=== PATIENT | male | born 1945 | race Caucasian/White ===

== ENCOUNTER 2018-01-17 15:09 | Emergency (ER) | payer MEDICARE ==
[~2018-01-17] VITALS: Ht 190.5 cm; Wt 123.8 kg
[~2018-01-17 15:09] MED LIST: ACET325 PO; ALBU90OI6 INH; AMOCLA875 PO; ASCO250CH PO; ASCO500 PO; ASPI325 PO; ATECHL PO; ATOR40TA PO; ATORVASTATIN CA40 MG PO; Amaryl2 MG PO; Aspir 8181 MG PO; Augmentin 875-1 EACH PO; BISA10S PR; Bactrim Ds Tab1 EACH PO; CARV3.125 PO; CLOP75 PO; DOC250 PO; DOCU100 PO; ESCI10 PO; FLUSAL2505; FLUSAL2505 INH; FURO20 PO; FURO40 PO; Ferrous Sulfat325 M2 PO; GABA100 PO; GABA300 PO; GLIM2 PO; HYDCHL25 PO; HYDR1TAB94 PO; HYDRA25 PO; Hydrocodone-Ap1 EA20 PO; INSDET100; INSDETPEN SC; IRON325 MG PO; LEVE500 PO; LEVFLO500 PO; LEVOFLOXACIN500 MG PO; LISI20 PO; LISI5 PO; LORA1 PO; LOVA20 PO; Lisinopril2.5 MG; Lisinopril2.5 MG PO; Loperamide2 MG PO; METF500 PO; METO50 PO; MINO100 PO; MIRALAX17 GM PO; MORP15ER PO; MORP30 PO; Micro-K10 MEQ PO; Milk Of Ma400 MG/5 M PO; Nitroglycerin0.4 MG SL; ONE A DAY PREN1 EACH PO; OXYC10ER; OXYC10ER PO; OXYC10TA19 PO; Omeprazole20 M1 PO; POTCHL10ER PO; PRED10 PO; PROM25 PO; Percocet 10-321 EACH PO; ROXICODONE5 MG PO; THERA PO; TIOT18; TIOT18 INH; UNKOWN B/P MED; WARF5 PO; Zofran Odt8 MG SL
[2018-01-17 15:55] LABS: BASOPHILS ABSOLUTE AUTO 0.03 K/mm3 (0.00-0.23); BASOPHILS PERCENT AUTO 0 % (0-2); EOSINOPHILS ABSOLUTE AUTO 0.01 K/mm3 (0.00-0.68); EOSINOPHILS PERCENT AUTO 0 % (0-6); Hematocrit 40.4 % (37.0-53.0); Hemoglobin 13.3 g/dL (13.5-17.5); IMMATURE GRAN ABSOLUTE AUTO 0.04 K/mm3 (0.00-0.10); IMMATURE GRAN PERCENT AUTO 0 % (0-1); LYMPHOCYTES ABSOLUTE AUTO 1.01 K/mm3 (0.84-5.20); LYMPHOCYTES PERCENT AUTO 8 % (21-46); MONOCYTES ABSOLUTE AUTO 0.71 K/mm3 (0.16-1.47); MONOCYTES PERCENT AUTO 6 % (4-13); Mean Corpuscular HGB 29.9 pg (26.0-34.0); Mean Corpuscular HGB Conc 32.9 g/dL (31.5-36.5); Mean Corpuscular Volume 91 fL (80-100); NEUTROPHILS ABSOLUTE AUTO 10.18 K/mm3 (1.96-9.15); NEUTROPHILS PERCENT AUTO 85 % (41-73); RDW Coefficient Variation 16.4 % (11.7-14.2); RDW Standard Deviation 55.2 fL (35.1-46.3); Red Blood Cell Count 4.45 M/mm3 (4.30-5.90); White Blood Cell Count 11.98 K/mm3 (4.00-11.30)
[2018-01-17 15:58] LABS: Mean Platelet Volume 10.3 fL (9.1-12.4); Platelet Count 187 K/mm3 (150-400)
[2018-01-17 16:10] LABS: Alanine Aminotransfer (ALT/SGP 20 U/L (12-78); Albumin/Globulin Ratio 0.9 (0.8-1.8); Alk Phos 122 U/L (50-136); Anion Gap 9 mmol/L (6-16); Aspartate Aminotrans (AST/SGOT 21 U/L (12-37); Bilirubin, Total 0.7 mg/dL (0.1-1.0); Blood Urea Nitrogen 15 mg/dL (8-24); Bun/Creatinine Ratio 16.4 (12.0-20.0); CO2, Blood 26 mmol/L (21-32); Calcium, Blood 9.8 mg/dL (8.5-10.1); Chloride, Blood 103 mmol/L (98-108); Creatinine, Blood 0.92 mg/dL (0.60-1.20); Globulin, Blood 4.6 g/dL (2.2-4.0); Glomerular Filtration Rate >60 (60-); Glucose, Blood 169 mg/dL (70-99); Potassium, Blood 4.2 mmol/L (3.5-5.5); Sodium, Blood 138 mmol/L (136-145); Total Protein, Blood 8.6 g/dL (6.4-8.2)
[2018-01-17 17:28] LABS: Source, Urine Clean Catch
[2018-01-17 17:35] LABS: Bilirubin, Urine Neg (Neg); Blood, Urine 4+ (Neg); Glucose Qualitative, Urine 2+ (Neg); Ketones, Urine 2+ (Neg); Leukocyte Esterase, Urine 1+ (Neg); Nitrite, Urine Neg (Neg); Protein, Urine 3+ (Neg); Urobilinogen, Urine NORM (Normal)
[2018-01-17 17:49] LABS: Appearance, Urine Clear (Clear); Color, Urine Yellow (P-Yellow)
[2018-01-17 17:50] LABS: Bacteria Few /hpf; Red Blood Cells, Urine 25-50 /hpf (0-2); Squamous Epithelial Cells Few /hpf (Few); White Blood Cells, Urine 0-2 /hpf (0-5)
[2018-01-17] MEDS ORDERED: Zofran Odt4 MG PO (18:22)
== END 2018-01-17 18:50 | disposition home or self-care (01) ==
LOC: ER 15:09
PROVIDERS: Emergency Medicine; Internal Medicine
DX: I10 Essential (primary) hypertension (principal); R11.0 Nausea; R10.13 Epigastric pain; E11.9 Type 2 diabetes mellitus without complications; Z79.899 Other long term (current) drug therapy; Z79.84 Long term (current) use of oral hypoglycemic drugs; Z87.891 Personal history of nicotine dependence
CPT/HCPCS: 36415; 74018; 80053; 81001; 83690; 85025; 87077; 87086; 87186; 93005; 93010; 96361; 96374; 96375; 96376; 99283-25; J0360; J1885; J2405; J2550; J7030

== ENCOUNTER 2019-06-21 11:38 | Emergency (ER) | payer MEDICARE ==
[~2019-06-21] VITALS: Ht 190.5 cm; Wt 149.7 kg
[~2019-06-21 11:38] MED LIST changes: +Coreg6.25 MG PO; +XARELTO20 MG PO; +Zofran Odt4 MG PO
[2019-06-21 12:39] LABS: BASOPHILS ABSOLUTE AUTO 0.05 K/mm3 (0.00-0.23); BASOPHILS PERCENT AUTO 1 % (0-2); EOSINOPHILS PERCENT AUTO 1 % (0-6); Hematocrit 38.3 % (37.0-53.0); Hemoglobin 12.3 g/dL (13.5-17.5); IMMATURE GRAN ABSOLUTE AUTO 0.02 K/mm3 (0.00-0.10); IMMATURE GRAN PERCENT AUTO 0 % (0-1); LYMPHOCYTES PERCENT AUTO 23 % (21-46); MONOCYTES ABSOLUTE AUTO 0.86 K/mm3 (0.16-1.47); MONOCYTES PERCENT AUTO 11 % (4-13); Mean Corpuscular HGB 29.7 pg (26.0-34.0); Mean Corpuscular HGB Conc 32.1 g/dL (31.5-36.5); Mean Corpuscular Volume 93 fL (80-100); NEUTROPHILS ABSOLUTE AUTO 4.94 K/mm3 (1.96-9.15); NEUTROPHILS PERCENT AUTO 64 % (41-73); Platelet Count 224 K/mm3 (150-400); RDW Coefficient Variation 14.6 % (11.7-14.2); RDW Standard Deviation 49.6 fL (35.1-46.3); Red Blood Cell Count 4.14 M/mm3 (4.30-5.90); White Blood Cell Count 7.77 K/mm3 (4.00-11.30)
[2019-06-21 13:38] LABS: Alanine Aminotransfer (ALT/SGP 18 U/L (12-78); Albumin, Blood 3.6 g/dL (3.4-5.0); Albumin/Globulin Ratio 0.8 (0.8-1.8); Alk Phos 94 U/L (50-136); Anion Gap 8 mmol/L (6-16); Aspartate Aminotrans (AST/SGOT 14 U/L (12-37); Bilirubin, Total 0.8 mg/dL (0.1-1.0); Blood Urea Nitrogen 11 mg/dL (8-24); Bun/Creatinine Ratio 11.8 (12.0-20.0); CO2, Blood 25 mmol/L (21-32); Calcium, Blood 9.3 mg/dL (8.5-10.1); Chloride, Blood 107 mmol/L (98-108); Creatinine, Blood 0.94 mg/dL (0.60-1.20); Globulin, Blood 4.6 g/dL (2.2-4.0); Glomerular Filtration Rate >60 (60-); Glucose, Blood 130 mg/dL (70-99); Potassium, Blood 3.9 mmol/L (3.5-5.5); Sodium, Blood 140 mmol/L (136-145); Total Protein, Blood 8.2 g/dL (6.4-8.2)
[2019-06-21] MEDS ORDERED: Zofran4 MG PO (14:16)
== END 2019-06-21 14:47 | disposition home or self-care (01) ==
LOC: ER 11:38
PROVIDERS: Emergency Medicine
DX: R11.0 Nausea (principal); R10.9 Unspecified abdominal pain; E11.9 Type 2 diabetes mellitus without complications; Z79.899 Other long term (current) drug therapy; Z87.891 Personal history of nicotine dependence
CPT/HCPCS: 36415; 80053; 83690; 85025; 93005; 93010; 96374; 99284-25; J2405

== ENCOUNTER 2019-11-20 00:08 | Day surgery (SDC) | payer MEDICARE ==
[~2019-11-20 00:08] MED LIST changes: +Zofran4 MG PO
== END 2019-11-20 22:38 | disposition home or self-care (01) ==
LOC: WOUND 00:08
DX: E11.622 Type 2 diabetes mellitus with other skin ulcer (principal); L97.222 Non-pressure chronic ulcer of left calf with fat layer exposed; I70.25 Atherosclerosis of native arteries of other extremities with ulceration; Z87.891 Personal history of nicotine dependence; Z79.01 Long term (current) use of anticoagulants; Z79.899 Other long term (current) drug therapy; Z79.84 Long term (current) use of oral hypoglycemic drugs
CPT/HCPCS: G0463

== ENCOUNTER 2019-11-29 00:16 | Day surgery (SDC) | payer MEDICARE | END 2019-11-29 23:52 | disposition home or self-care (01) | LOC: WOUND 00:16 | DX: E11.622 Type 2 diabetes mellitus with other skin ulcer (principal); L97.222 Non-pressure chronic ulcer of left calf with fat layer exposed; I70.25 Atherosclerosis of native arteries of other extremities with ulceration; Z79.84 Long term (current) use of oral hypoglycemic drugs | CPT/HCPCS: 11107 ==

== ENCOUNTER 2020-01-07 20:15 | Emergency (ER) | payer MEDICARE ==
[~2020-01-07] VITALS: Ht 190.5 cm; Wt 90.7 kg
[2020-01-07 21:01] LABS: BASOPHILS ABSOLUTE AUTO 0.04 K/mm3 (0.00-0.23); BASOPHILS PERCENT AUTO 0 % (0-2); EOSINOPHILS ABSOLUTE AUTO 0.31 K/mm3 (0.00-0.68); EOSINOPHILS PERCENT AUTO 3 % (0-6); Hematocrit 29.6 % (37.0-53.0); IMMATURE GRAN ABSOLUTE AUTO 0.04 K/mm3 (0.00-0.10); IMMATURE GRAN PERCENT AUTO 0 % (0-1); LYMPHOCYTES ABSOLUTE AUTO 2.39 K/mm3 (0.84-5.20); LYMPHOCYTES PERCENT AUTO 25 % (21-46); MONOCYTES ABSOLUTE AUTO 0.99 K/mm3 (0.16-1.47); MONOCYTES PERCENT AUTO 10 % (4-13); Mean Corpuscular HGB 26.8 pg (26.0-34.0); Mean Corpuscular HGB Conc 30.4 g/dL (31.5-36.5); Mean Corpuscular Volume 88 fL (80-100); Mean Platelet Volume 11.4 fL (9.1-12.4); NEUTROPHILS ABSOLUTE AUTO 5.77 K/mm3 (1.96-9.15); NEUTROPHILS PERCENT AUTO 61 % (41-73); Platelet Count 234 K/mm3 (150-400); RDW Standard Deviation 54.5 fL (35.1-46.3); Red Blood Cell Count 3.36 M/mm3 (4.30-5.90); White Blood Cell Count 9.54 K/mm3 (4.00-11.30)
[2020-01-07 21:19] LABS: Alanine Aminotransfer (ALT/SGP 19 U/L (12-78); Albumin, Blood 3.5 g/dL (3.4-5.0); Albumin/Globulin Ratio 0.7 (0.8-1.8); Alk Phos 97 U/L (50-136); Anion Gap 5 mmol/L (6-16); Aspartate Aminotrans (AST/SGOT 31 U/L (12-37); Bilirubin, Total 0.4 mg/dL (0.1-1.0); Blood Urea Nitrogen 22 mg/dL (8-24); Bun/Creatinine Ratio 20.2 (12.0-20.0); CO2, Blood 28 mmol/L (21-32); Calcium, Blood 8.9 mg/dL (8.5-10.1); Chloride, Blood 108 mmol/L (98-108); Creatinine, Blood 1.09 mg/dL (0.60-1.20); Globulin, Blood 4.8 g/dL (2.2-4.0); Glomerular Filtration Rate >60 (60-); Glucose, Blood 109 mg/dL (70-99); Potassium, Blood 5.1 mmol/L (3.5-5.5); Sodium, Blood 141 mmol/L (136-145); Total Protein, Blood 8.3 g/dL (6.4-8.2)
[2020-01-07 21:27] LABS: Source, Urine Clean Catch
[2020-01-07 21:31] LABS: Bilirubin, Urine Neg (Neg); Blood, Urine 4+ (Neg); Glucose Qualitative, Urine Neg (Neg); Ketones, Urine Neg (Neg); Leukocyte Esterase, Urine Neg (Neg); Nitrite, Urine Neg (Neg); Protein, Urine 2+ (Neg); Urobilinogen, Urine NORM (Normal)
[2020-01-07 21:39] LABS: Appearance, Urine Clear (Clear); Color, Urine Yellow (P-Yellow)
[2020-01-07 21:40] LABS: Bacteria Few /hpf; Squamous Epithelial Cells Few /hpf (Few); White Blood Cells, Urine 0-2 /hpf (0-5)
== END 2020-01-08 00:19 | disposition home or self-care (01) ==
LOC: ER 20:15
PROVIDERS: Physician Assistant
DX: R53.1 Weakness (principal); E11.9 Type 2 diabetes mellitus without complications; Z79.899 Other long term (current) drug therapy
CPT/HCPCS: 36415; 71045; 80053; 81001; 85025; 93005; 93010; 99284-25

== ENCOUNTER → 2020-02-06 | Outpatient (CLI) | payer MEDICARE ==
[2020-02-06 16:33] LABS: Appearance, Urine Clear (Clear); Bilirubin, Urine Neg (Neg); Blood, Urine 1+ (Neg); Color, Urine Yellow (P-Yellow); Glucose Qualitative, Urine Neg (Neg); Ketones, Urine Neg (Neg); Leukocyte Esterase, Urine Neg (Neg); Nitrite, Urine Neg (Neg); Protein, Urine Neg (Neg); Urobilinogen, Urine NORM (Normal)
[2020-02-06 16:44] LABS: Bacteria Rare /hpf; Hyaline Casts Rare /lpf (0-2); Squamous Epithelial Cells Few /hpf (Few); White Blood Cells, Urine 0-2 /hpf (0-5)
== END | disposition home or self-care (01) ==
LOC: LAB SHORT 15:30 → LAB 15:30
PROVIDERS: Physician Assistant
DX: R31.9 Hematuria, unspecified (principal)
CPT/HCPCS: 81001; 87086

== ENCOUNTER 2020-03-28 15:23 | Emergency (ER) | payer MEDICARE ==
[~2020-03-28] VITALS: Ht 190.5 cm; Wt 90.7 kg
[~2020-03-28 15:23] MED LIST changes: -Micro-K10 MEQ PO; +POTA10T PO
[2020-03-28 16:09] LABS: BASOPHILS ABSOLUTE AUTO 0.05 K/mm3 (0.00-0.23); BASOPHILS PERCENT AUTO 1 % (0-2); EOSINOPHILS ABSOLUTE AUTO 0.26 K/mm3 (0.00-0.68); EOSINOPHILS PERCENT AUTO 4 % (0-6); Hematocrit 26.3 % (37.0-53.0); Hemoglobin 7.6 g/dL (13.5-17.5); IMMATURE GRAN ABSOLUTE AUTO 0.04 K/mm3 (0.00-0.10); IMMATURE GRAN PERCENT AUTO 1 % (0-1); LYMPHOCYTES ABSOLUTE AUTO 1.56 K/mm3 (0.84-5.20); LYMPHOCYTES PERCENT AUTO 23 % (21-46); MONOCYTES ABSOLUTE AUTO 0.77 K/mm3 (0.16-1.47); MONOCYTES PERCENT AUTO 11 % (4-13); Mean Corpuscular HGB 23.9 pg (26.0-34.0); Mean Corpuscular HGB Conc 28.9 g/dL (31.5-36.5); Mean Corpuscular Volume 83 fL (80-100); NEUTROPHILS ABSOLUTE AUTO 4.08 K/mm3 (1.96-9.15); NEUTROPHILS PERCENT AUTO 60 % (41-73); RDW Coefficient Variation 21.3 % (11.7-14.2); RDW Standard Deviation 63.5 fL (35.1-46.3); Red Blood Cell Count 3.18 M/mm3 (4.30-5.90); White Blood Cell Count 6.76 K/mm3 (4.00-11.30)
[2020-03-28 16:24] LABS: Mean Platelet Volume 12.3 fL (9.1-12.4); Platelet Count 133 K/mm3 (150-400)
[2020-03-28 16:45] LABS: Albumin/Globulin Ratio 0.7 (0.8-1.8); Bilirubin, Total 0.7 mg/dL (0.1-1.0); Bun/Creatinine Ratio 18.2 (12.0-20.0); Calcium, Blood 8.1 mg/dL (8.5-10.1); Creatinine, Blood 1.65 mg/dL (0.60-1.20); Globulin, Blood 4.4 g/dL (2.2-4.0); Potassium, Blood 4.5 mmol/L (3.5-5.5); Total Protein, Blood 7.4 g/dL (6.4-8.2)
[2020-03-28] MEDS ORDERED: FURO40 PO (16:46)
[2020-03-28 16:57] LABS: Lactate Dehydrogenase (Ld),Bld 259 U/L (100-240); Troponin I <0.015 ng/mL (0.000-0.040)
== END 2020-03-28 18:00 | disposition home or self-care (01) ==
LOC: ER 15:23
PROVIDERS: Emergency Medicine; Physician Assistant
DX: I95.9 Hypotension, unspecified (principal); I13.0 Hypertensive heart and chronic kidney disease with heart failure and stage 1 through stage 4 chronic kidney disease, or unspecified chronic kidney disease; I50.9 Heart failure, unspecified; N18.9 Chronic kidney disease, unspecified; I25.2 Old myocardial infarction; I25.10 Atherosclerotic heart disease of native coronary artery without angina pectoris; I48.91 Unspecified atrial fibrillation; E11.51 Type 2 diabetes mellitus with diabetic peripheral angiopathy without gangrene; E11.22 Type 2 diabetes mellitus with diabetic chronic kidney disease; E78.5 Hyperlipidemia, unspecified; I25.810 Atherosclerosis of coronary artery bypass graft(s) without angina pectoris; Z95.1 Presence of aortocoronary bypass graft; Z79.899 Other long term (current) drug therapy
CPT/HCPCS: 36415; 80053; 82248; 83615; 83880; 84484; 85025; 86850; 86900; 86901; 93005; 93010; 99284-25; J7030

== ENCOUNTER → 2020-04-04 | Outpatient (CLI) | payer MEDICARE ==
[2020-04-04 17:50] LABS: Percent Saturation 6.3 % (20.0-50.0)
[2020-04-04 17:55] LABS: BASOPHILS ABSOLUTE AUTO 0.05 K/mm3 (0.00-0.23); BASOPHILS PERCENT AUTO 1 % (0-2); EOSINOPHILS ABSOLUTE AUTO 0.25 K/mm3 (0.00-0.68); EOSINOPHILS PERCENT AUTO 4 % (0-6); Hematocrit 24.7 % (37.0-53.0); Hemoglobin 7.1 g/dL (13.5-17.5); IMMATURE GRAN ABSOLUTE AUTO 0.03 K/mm3 (0.00-0.10); IMMATURE GRAN PERCENT AUTO 0 % (0-1); LYMPHOCYTES PERCENT AUTO 23 % (21-46); MONOCYTES ABSOLUTE AUTO 0.84 K/mm3 (0.16-1.47); MONOCYTES PERCENT AUTO 12 % (4-13); Mean Corpuscular HGB 23.9 pg (26.0-34.0); Mean Corpuscular HGB Conc 28.7 g/dL (31.5-36.5); Mean Corpuscular Volume 83 fL (80-100); NEUTROPHILS ABSOLUTE AUTO 4.23 K/mm3 (1.96-9.15); NEUTROPHILS PERCENT AUTO 60 % (41-73); RDW Coefficient Variation 22.2 % (11.7-14.2); RDW Standard Deviation 65.8 fL (35.1-46.3); Red Blood Cell Count 2.97 M/mm3 (4.30-5.90)
[2020-04-04 17:59] LABS: Alanine Aminotransfer (ALT/SGP 22 U/L (12-78); Albumin, Blood 3.1 g/dL (3.4-5.0); Albumin/Globulin Ratio 0.7 (0.8-1.8); Alk Phos 92 U/L (50-136); Anion Gap 6 mmol/L (6-16); Aspartate Aminotrans (AST/SGOT 20 U/L (12-37); Bilirubin, Total 0.4 mg/dL (0.1-1.0); Blood Urea Nitrogen 22 mg/dL (8-24); Bun/Creatinine Ratio 17.7 (12.0-20.0); CO2, Blood 27 mmol/L (21-32); Calcium, Blood 8.5 mg/dL (8.5-10.1); Chloride, Blood 107 mmol/L (98-108); Creatinine, Blood 1.24 mg/dL (0.60-1.20); Globulin, Blood 4.3 g/dL (2.2-4.0); Glomerular Filtration Rate >60 (60-); Glucose, Blood 163 mg/dL (70-99); Potassium, Blood 4.9 mmol/L (3.5-5.5); Sodium, Blood 140 mmol/L (136-145); Total Protein, Blood 7.4 g/dL (6.4-8.2)
[2020-04-04 18:16] LABS: Mean Platelet Volume 12.9 fL (9.1-12.4); Platelet Count 212 K/mm3 (150-400)
== END | disposition home or self-care (01) ==
LOC: LAB HH 15:48
PROVIDERS: Physician Assistant
DX: C44.729 Squamous cell carcinoma of skin of left lower limb, including hip (principal); D63.0 Anemia in neoplastic disease; N28.9 Disorder of kidney and ureter, unspecified; D69.6 Thrombocytopenia, unspecified
CPT/HCPCS: 80053; 82607; 82728; 82746; 83540; 83550; 83880; 85025

== ENCOUNTER 2020-04-07 13:39 | Emergency (ER) | payer MEDICARE ==
[~2020-04-07] VITALS: Ht 190.5 cm; Wt 88.5 kg
[2020-04-07 14:51] LABS: BASOPHILS ABSOLUTE AUTO 0.05 K/mm3 (0.00-0.23); BASOPHILS PERCENT AUTO 1 % (0-2); EOSINOPHILS ABSOLUTE AUTO 0.23 K/mm3 (0.00-0.68); EOSINOPHILS PERCENT AUTO 4 % (0-6); Hematocrit 24.1 % (37.0-53.0); Hemoglobin 6.8 g/dL (13.5-17.5); IMMATURE GRAN ABSOLUTE AUTO 0.01 K/mm3 (0.00-0.10); IMMATURE GRAN PERCENT AUTO 0 % (0-1); LYMPHOCYTES ABSOLUTE AUTO 1.66 K/mm3 (0.84-5.20); LYMPHOCYTES PERCENT AUTO 28 % (21-46); MONOCYTES ABSOLUTE AUTO 0.71 K/mm3 (0.16-1.47); MONOCYTES PERCENT AUTO 12 % (4-13); Mean Corpuscular HGB 23.6 pg (26.0-34.0); Mean Corpuscular HGB Conc 28.2 g/dL (31.5-36.5); Mean Corpuscular Volume 84 fL (80-100); Mean Platelet Volume 11.4 fL (9.1-12.4); NEUTROPHILS ABSOLUTE AUTO 3.33 K/mm3 (1.96-9.15); NEUTROPHILS PERCENT AUTO 56 % (41-73); Platelet Count 225 K/mm3 (150-400); RDW Coefficient Variation 22.4 % (11.7-14.2); RDW Standard Deviation 67.9 fL (35.1-46.3); Red Blood Cell Count 2.88 M/mm3 (4.30-5.90); White Blood Cell Count 5.99 K/mm3 (4.00-11.30)
[2020-04-07 15:11] LABS: Alanine Aminotransfer (ALT/SGP 14 U/L (12-78); Albumin, Blood 3.1 g/dL (3.4-5.0); Albumin/Globulin Ratio 0.7 (0.8-1.8); Alk Phos 94 U/L (50-136); Anion Gap 4 mmol/L (6-16); Aspartate Aminotrans (AST/SGOT 9 U/L (12-37); Bilirubin, Total 0.5 mg/dL (0.1-1.0); Blood Urea Nitrogen 22 mg/dL (8-24); Bun/Creatinine Ratio 15.3 (12.0-20.0); CO2, Blood 28 mmol/L (21-32); Calcium, Blood 8.7 mg/dL (8.5-10.1); Chloride, Blood 106 mmol/L (98-108); Creatinine, Blood 1.44 mg/dL (0.60-1.20); Globulin, Blood 4.2 g/dL (2.2-4.0); Glomerular Filtration Rate 51 (60-); Glucose, Blood 137 mg/dL (70-99); Potassium, Blood 4.7 mmol/L (3.5-5.5); Sodium, Blood 138 mmol/L (136-145); Total Protein, Blood 7.3 g/dL (6.4-8.2); Troponin I <0.015 ng/mL (0.000-0.040)
== END 2020-04-07 19:34 | disposition home or self-care (01) ==
LOC: ER 13:39
PROVIDERS: Physician Assistant
DX: D64.9 Anemia, unspecified (principal); R79.89 Other specified abnormal findings of blood chemistry; I25.2 Old myocardial infarction; I48.91 Unspecified atrial fibrillation; E11.51 Type 2 diabetes mellitus with diabetic peripheral angiopathy without gangrene; I13.0 Hypertensive heart and chronic kidney disease with heart failure and stage 1 through stage 4 chronic kidney disease, or unspecified chronic kidney disease; I50.9 Heart failure, unspecified; E78.5 Hyperlipidemia, unspecified; I25.810 Atherosclerosis of coronary artery bypass graft(s) without angina pectoris; E11.22 Type 2 diabetes mellitus with diabetic chronic kidney disease; N18.9 Chronic kidney disease, unspecified; Z79.899 Other long term (current) drug therapy; Z95.1 Presence of aortocoronary bypass graft; Z87.891 Personal history of nicotine dependence
CPT/HCPCS: 36415; 71046; 80053; 83880; 84484; 85025; 86850; 86900; 86901; 86923; 93005; 93010; 96365; 99285-25; J7030; P9016

== ENCOUNTER 2020-07-20 16:57 | Inpatient (IN) | payer MEDICARE ==
[~2020-07-20] VITALS: Ht 190.5 cm; Wt 81.3 kg
[~2020-07-20 16:57] MED LIST changes: +CARV6.25 PO; +FERSU300 PO; +OMEP20ER PO
[2020-07-20 18:15] LABS: BASOPHILS ABSOLUTE AUTO 0.07 K/mm3 (0.00-0.23); BASOPHILS PERCENT AUTO 1 % (0-2); EOSINOPHILS ABSOLUTE AUTO 0.14 K/mm3 (0.00-0.68); EOSINOPHILS PERCENT AUTO 2 % (0-6); Hematocrit 39.7 % (37.0-53.0); Hemoglobin 12.6 g/dL (13.5-17.5); IMMATURE GRAN ABSOLUTE AUTO 0.07 K/mm3 (0.00-0.10); IMMATURE GRAN PERCENT AUTO 1 % (0-1); LYMPHOCYTES ABSOLUTE AUTO 1.95 K/mm3 (0.84-5.20); LYMPHOCYTES PERCENT AUTO 21 % (21-46); MONOCYTES ABSOLUTE AUTO 0.93 K/mm3 (0.16-1.47); MONOCYTES PERCENT AUTO 10 % (4-13); Mean Corpuscular HGB 28.8 pg (26.0-34.0); Mean Corpuscular HGB Conc 31.7 g/dL (31.5-36.5); Mean Corpuscular Volume 91 fL (80-100); Mean Platelet Volume 10.9 fL (9.1-12.4); NEUTROPHILS ABSOLUTE AUTO 6.15 K/mm3 (1.96-9.15); NEUTROPHILS PERCENT AUTO 66 % (41-73); Platelet Count 153 K/mm3 (150-400); RDW Coefficient Variation 18.6 % (11.7-14.2); RDW Standard Deviation 59.7 fL (35.1-46.3); Red Blood Cell Count 4.37 M/mm3 (4.30-5.90); White Blood Cell Count 9.31 K/mm3 (4.00-11.30)
[2020-07-20 18:27] LABS: Troponin I 0.016 ng/mL (0.000-0.040)
[2020-07-20 18:28] LABS: Albumin, Blood 3.6 g/dL (3.4-5.0); Albumin/Globulin Ratio 0.8 (0.8-1.8); Bilirubin, Total 0.6 mg/dL (0.1-1.0); Bun/Creatinine Ratio 11.9 (12.0-20.0); Calcium, Blood 9.2 mg/dL (8.5-10.1); Creatinine, Blood 2.1 mg/dL (0.60-1.20); Globulin, Blood 4.4 g/dL (2.2-4.0); Potassium, Blood 3.9 mmol/L (3.5-5.5)
[2020-07-20 18:29] LABS: Ethanol (Alcohol), Blood, Med <3 mg/dL; Salicylate 2.4 mg/dL (2.8-20.0)
[2020-07-20 18:30] LABS: Acetaminophen, Random <2.0 ug/mL (10.0-30.0)
[2020-07-20 18:36] LABS: Influenza A, PCR Negative (NEGATIVE); Influenza B, PCR Negative (NEGATIVE); Resp Syncytial Virus, PCR Negative (NEGATIVE); SARS-Cov-2 (COVID-19) PCR, MMC Negative (NEGATIVE)
[2020-07-20 18:52] LABS: Source, Urine Catheter
[2020-07-20 18:56] LABS: Appearance, Urine Hazy (Clear); Bilirubin, Urine 2+ (Neg); Blood, Urine 5+ (Neg); Glucose Qualitative, Urine Neg (Neg); Ketones, Urine 2+ (Neg); Leukocyte Esterase, Urine 1+ (Neg); Nitrite, Urine Pos (Neg); Protein, Urine 3+ (Neg); Specific Gravity, Urine 1.025 (1.003-1.022); Urobilinogen, Urine 2+ (Normal)
[2020-07-20] MEDS ORDERED: ESCI10 PO (18:56)
[2020-07-20] MEDS ORDERED: GABAPENTIN600 MG PO (18:56)
[2020-07-20] MEDS ORDERED: FUROSEMIDE40 MG PO (18:56)
[2020-07-20] MEDS ORDERED: CARVEDILOL12.5 MG PO (18:56)
[2020-07-20] MEDS ORDERED: ATORVASTATIN CA40 M1 PO (18:56)
[2020-07-20 18:57] LABS: Color, Urine Amber (P-Yellow)
[2020-07-20] MEDS ORDERED: OMEP20ER PO (18:57)
[2020-07-20] MEDS ORDERED: Lisinopril2.5 MG PO (18:57)
[2020-07-20] MEDS ORDERED: GLIM2 PO (18:58)
[2020-07-20 19:03] LABS: Bacteria Mod /hpf; Squamous Epithelial Cells Few /hpf (Few)
[2020-07-20 19:04] LABS: Amorphous Mod (0-Heavy)
[2020-07-20 19:06] LABS: U Amphetamine Screen Not Detected; U Barbituate Screen Not Detected; U Benzodiazapine Screen Not Detected; U Buprenorphine Screen Not Detected; U Cannabinoids Screen DETECTED; U Cocaine Screen Not Detected; U Methadone Screen Not Detected; U Methamphetamine Screen Not Detected; U Opiates Screen Not Detected; U Oxycodone Screen Not Detected; U Phencyclidine Screen Not Detected; U Propoxyphene Screen Not Detected
--- NOTE | 2020-07-20 21:20 | NUR ---
ASSUMED PT CARE REPORT RECEIVED FROM ANYA CONTRERAS IN ER. PT ARRIVES TO ICU ROOM 9 VIA STRETCHER. ASSISTED TO BED WITH SLIDE SHEET AND 4 PEOPLE WITHOUT INCIDENCE. PT ALERT AND ORIENTED. POOR HISTORIAN. ABLE TO ANSWER MOST ADMIT QUESTIONS. PT PLACED ON CARDIAC/NIBP/SAT MONITORING AND ORIENTED TO ROOM AND CALL LIGHT. GLUCAGON INF CONTINUES. PT HAS 22G SL TO RIGHT HAND, SITE WNL, DRESSING C/D/I. PT HAS 20G TO RIGHT FA, SITE WNL, DRESSING C/D/I. KIM DRAINING LILO COLORED URINE. PT SKIN DRY, FRAGILE. SCABS TO EXT. CLEAN ATTENDS IN PLACE. PT ABD SOFT AND NONTENDER. PT DENIES NAUSEA. SB ON MONITOR. SBP STABLE WITH GLUCAGON INF. SEE FULL ADMIT ASSESSMENT.
--- NOTE | 2020-07-20 23:50 | NUR ---
DUE TO PERSISTANT VOMITING, GLUCAGON INF STOPPED. PHARMACY AWARE. IVF STARTED AT 75ML/HR PER EMAR.
[2020-07-21 03:51] LABS: BASOPHILS ABSOLUTE AUTO 0.04 K/mm3 (0.00-0.23); BASOPHILS PERCENT AUTO 0 % (0-2); EOSINOPHILS ABSOLUTE AUTO 0.02 K/mm3 (0.00-0.68); EOSINOPHILS PERCENT AUTO 0 % (0-6); Hematocrit 36.3 % (37.0-53.0); Hemoglobin 11.5 g/dL (13.5-17.5); IMMATURE GRAN ABSOLUTE AUTO 0.03 K/mm3 (0.00-0.10); IMMATURE GRAN PERCENT AUTO 0 % (0-1); LYMPHOCYTES ABSOLUTE AUTO 1.65 K/mm3 (0.84-5.20); LYMPHOCYTES PERCENT AUTO 15 % (21-46); MONOCYTES ABSOLUTE AUTO 1.41 K/mm3 (0.16-1.47); MONOCYTES PERCENT AUTO 13 % (4-13); Mean Corpuscular HGB 29.2 pg (26.0-34.0); Mean Corpuscular HGB Conc 31.7 g/dL (31.5-36.5); Mean Corpuscular Volume 92 fL (80-100); Mean Platelet Volume 10.2 fL (9.1-12.4); NEUTROPHILS ABSOLUTE AUTO 7.73 K/mm3 (1.96-9.15); NEUTROPHILS PERCENT AUTO 71 % (41-73); Platelet Count 134 K/mm3 (150-400); RDW Coefficient Variation 18.2 % (11.7-14.2); RDW Standard Deviation 59.4 fL (35.1-46.3); Red Blood Cell Count 3.94 M/mm3 (4.30-5.90); White Blood Cell Count 10.88 K/mm3 (4.00-11.30)
[2020-07-21 04:12] LABS: Albumin, Blood 3.4 g/dL (3.4-5.0); Albumin/Globulin Ratio 0.8 (0.8-1.8); Bilirubin, Total 0.6 mg/dL (0.1-1.0); Bun/Creatinine Ratio 17.3 (12.0-20.0); Creatinine, Blood 1.91 mg/dL (0.60-1.20); Globulin, Blood 4.2 g/dL (2.2-4.0); Potassium, Blood 3.9 mmol/L (3.5-5.5); Total Protein, Blood 7.6 g/dL (6.4-8.2)
--- NOTE | 2020-07-21 06:52 | NUR ---
SHIFT SUMMARY PT HAD EVENFUL EVENING. PT DROWSY BUT RESPONSIVE. PT PALE AND SOMETIMES CLAMMY DUE TO BLOOD SUGAR FLUCTUATIONS. AFTER GLUCAGON INF STOPPED PT BLOOD SUGAR DROPPED TO 19, 1 AMP D50 GIVEN AND PT BECAME MORE ALERT AND RESPONSIVE. WITH EPISODE OF HYPOGLYCEMIA PT HYPERTENSIVE. BP APPROPRIATED ONCE BLOOD SUGAR IMPROVED. DR MAGAÑA AWARE AND RN TOLD TO MONITOR. BLOOD SUGARE TRENDING DOWN AGAIN THIS AM, IVF SWITCHED TO D51/2NS @ 75ML/HR. PT HAS 22G SL TO RIGHT HAND, SITE WNL, DRESSING C/D/I. PT HAS 20G TO RIGHT FA WITH IVF INF. SITE WNL, DRESSING C/D/I. PT HAS KIM DRAINING LILO COLORED URINE. LEAD APPLICATION ARCHITECT SHOW SB. SATS >92% ON 2L. PT HAD MULT EPISODES OF EMESIS LAST PM UNTIL GLUCAGON STOPPED. ABD SOFT, NONTENDER. CALL LIGHT IN REACH. WILL REPORT TO ONCOMING RN.
--- NOTE | 2020-07-21 07:30 | NUR ---
ASSUMED CARE: PT RESTING IN BED AT THIS TIME. D5 1/2 NS RUNNING AT THIS TIME FOR HYPOGLYCEMIA. HTN NOTED, WILL MEDICATE NEEDED. NSR WITH BBB AT THIS TIME. AWAITING GI PANEL BUT NO STOOL AT THIS TIME. NO ACUTE NEEDS AT THIS TIME.
--- NOTE | 2020-07-21 08:27 | NUR ---
DISCUSSED PT'S BLOOD SUGARS AND HYPERTENSION WITH DR KLINE WHO FEELS THERE ISN'T A CORRELATION AT THIS TIME. IS ORDERING MEDS FOR HYPERTENSION AND KEEPING D5 1/[address] FOR HYPOGLYCEMIA. DIET ORDERED. ASKED DR IF SHE WANTED GI PANEL CONTINUED TO WHICH CONFIRMED.
--- NOTE | 2020-07-21 13:22 | NUR ---
CALL TO DR KLINE REGARDING PT'S CBG RESULTS. ORDERS TO STOP D5 1/2 NS AND TO CONTINUE Q2 HOUR CHECKS FOR A FEW MORE HOURS AND MAY DOWNGRADE TO DIFFERENT UNIT STATUS. PT DENIES NEEDS OR CONCERNS AT THIS TIME.
--- NOTE | 2020-07-21 16:56 | NUR ---
REPORT GIVEN TO BEN DUNBAR. PT TRANSFERRED TO ROOM 361 VIA BED BY YANET. PT'S MARIOLA WAS NOTIFIED OF TRANSFER TO NEW ROOM. NO FURTHER NEEDS OR CONCERNS
--- NOTE | 2020-07-21 17:35 | NUR ---
ARRIVES TO FLOOR ABOUT 1652 TRANSFER FROM ICU. ALERT. ORIENTED. LUNGS CLEAR. SALINE LOCK X 2. DENIES ANY PAIN, BUT HAS LEFT RIB FX 10 AND 11 AND T11 FX FROM FALL AT HOME. DENIES NUMBNESS AND TINGLING EXT. 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 MULTIPLE SCABS T/O. NEED STOOL SAMPLE HAD DIARRHEA AT HOME. HX OF ; DM, CABG, HTN, PAD, CAD. UNLABORED RESPIRATIONS. CALL LIGHT WITHIN REACH. TM
--- NOTE | 2020-07-22 04:07 | NUR ---
SHIFT SUMMARY PATIENT HAD NO ACUTE CHANGES OBSERVED. AXOX 3 WITH CONFUSION AT TIMES. RIGHT BKA AND BEDREST. PROSTHETIC IN ROOM. CBG 125. PIV REMAINS INTACT. REGISTER OF WILLS REPORTS NSR 62. KIM PATENT AND DRAINING TO GRAVITY. VSS/AFEBRILE. DENIES PAIN, SOB, AND N/V. TAKES MEDICATION WHOLE WITH WATER. REPORTS NOT ABLE TO GIVE STOOL SAMPLE AT THIS TIME. CALL LIGHT IN REACH. BED IN LOWEST POSITION. WILL CONTINUE TO MONITOR UNTIL DAY SHIFT NURSE ASSUMES CARE.
[2020-07-22 05:18] LABS: Alanine Aminotransfer (ALT/SGP 14 U/L (12-78); Albumin, Blood 2.9 g/dL (3.4-5.0); Albumin/Globulin Ratio 0.7 (0.8-1.8); Alk Phos 82 U/L (50-136); Anion Gap 8 mmol/L (6-16); Aspartate Aminotrans (AST/SGOT 17 U/L (12-37); BASOPHILS ABSOLUTE AUTO 0.05 K/mm3 (0.00-0.23); BASOPHILS PERCENT AUTO 1 % (0-2); Bilirubin, Total 0.4 mg/dL (0.1-1.0); Blood Urea Nitrogen 27 mg/dL (8-24); Bun/Creatinine Ratio 21.8 (12.0-20.0); CO2, Blood 22 mmol/L (21-32); Calcium, Blood 8.8 mg/dL (8.5-10.1); Chloride, Blood 109 mmol/L (98-108); Creatinine, Blood 1.24 mg/dL (0.60-1.20); EOSINOPHILS ABSOLUTE AUTO 0.14 K/mm3 (0.00-0.68); EOSINOPHILS PERCENT AUTO 2 % (0-6); Globulin, Blood 3.9 g/dL (2.2-4.0); Glomerular Filtration Rate >60 (60-); Glucose, Blood 132 mg/dL (70-99); Hematocrit 32.8 % (37.0-53.0); Hemoglobin 10.4 g/dL (13.5-17.5); IMMATURE GRAN ABSOLUTE AUTO 0.04 K/mm3 (0.00-0.10); IMMATURE GRAN PERCENT AUTO 1 % (0-1); LYMPHOCYTES PERCENT AUTO 20 % (21-46); MONOCYTES ABSOLUTE AUTO 0.98 K/mm3 (0.16-1.47); MONOCYTES PERCENT AUTO 12 % (4-13); Mean Corpuscular HGB 28.4 pg (26.0-34.0); Mean Corpuscular HGB Conc 31.7 g/dL (31.5-36.5); Mean Corpuscular Volume 90 fL (80-100); NEUTROPHILS ABSOLUTE AUTO 5.46 K/mm3 (1.96-9.15); NEUTROPHILS PERCENT AUTO 65 % (41-73); Potassium, Blood 3.6 mmol/L (3.5-5.5); RDW Coefficient Variation 18.7 % (11.7-14.2); RDW Standard Deviation 61.3 fL (35.1-46.3); Red Blood Cell Count 3.66 M/mm3 (4.30-5.90); Sodium, Blood 139 mmol/L (136-145); Total Protein, Blood 6.8 g/dL (6.4-8.2); White Blood Cell Count 8.37 K/mm3 (4.00-11.30)
[2020-07-22 05:23] LABS: Platelet Count 123 K/mm3 (150-400)
[2020-07-22] MEDS ORDERED: AMLO5 PO (11:07)
[2020-07-22] MEDS ORDERED: LIDO700A20 TOP (11:08)
[2020-07-22] MEDS ORDERED: LOPE2C PO (11:09)
--- NOTE | 2020-07-22 11:54 | NUR ---
REVIEW D'C. AWARE MEDS AT [facility]. HAS F/U APPT W/PCP TOMORROW. REVIEW WHICH MEDS TO STOP TAKING. ANSWER ALL QUESTIONS. TO TAKE PATIENT HOME.
== END 2020-07-22 13:06 | disposition home or self-care (01) | DRG 682 ==
LOC: ER 16:57 → ICUW 20:03 → ERHOLD 20:03 → ICUW 21:18 → MEDS 07-21 17:27
PROVIDERS: Emergency Medicine; Internal Medicine; ADMIT Internal Medicine
DX: N17.9 Acute kidney failure, unspecified (principal); R57.1 Hypovolemic shock; S22.42XA Multiple fractures of ribs, left side, initial encounter for closed fracture; I42.9 Cardiomyopathy, unspecified; I13.0 Hypertensive heart and chronic kidney disease with heart failure and stage 1 through stage 4 chronic kidney disease, or unspecified chronic kidney disease; I95.9 Hypotension, unspecified; N18.2 Chronic kidney disease, stage 2 (mild); E86.0 Dehydration; W19.XXXA Unspecified fall, initial encounter; E11.649 Type 2 diabetes mellitus with hypoglycemia without coma; E11.51 Type 2 diabetes mellitus with diabetic peripheral angiopathy without gangrene; Z20.822 Contact with and (suspected) exposure to COVID-19; I35.0 Nonrheumatic aortic (valve) stenosis; I25.10 Atherosclerotic heart disease of native coronary artery without angina pectoris; K52.9 Noninfective gastroenteritis and colitis, unspecified; E11.22 Type 2 diabetes mellitus with diabetic chronic kidney disease; K21.9 Gastro-esophageal reflux disease without esophagitis; L98.9 Disorder of the skin and subcutaneous tissue, unspecified; I50.9 Heart failure, unspecified; E78.5 Hyperlipidemia, unspecified; Z95.2 Presence of prosthetic heart valve; I25.2 Old myocardial infarction; Z95.1 Presence of aortocoronary bypass graft; Z89.511 Acquired absence of right leg below knee; Z87.891 Personal history of nicotine dependence
CPT/HCPCS: 0241U; 36415; 51702; 70450; 71045; 74176; 80053; 81001; 82330; 82947; 83605; 83735; 83880; 84484; 85025; 87040; 87086; 93005; 93010; 96365; 96367; 96368; 96375; 96376; 99285-25; A9270; G0480; J0461; J0610; J0696; J1610; J1650; J2405; J7030; J7042

== ENCOUNTER 2020-08-12 00:33 | Day surgery (SDC) | payer MEDICARE ==
[~2020-08-12 00:33] MED LIST changes: +AMLO5 PO; +ATORVASTATIN CA40 M1 PO; +CARVEDILOL12.5 MG PO; +FUROSEMIDE40 MG PO; +GABAPENTIN600 MG PO; +LIDO700A20 TOP; +LOPE2C PO
== END 2020-08-12 22:54 | disposition home or self-care (01) ==
LOC: WOUND 00:33
DX: E11.52 Type 2 diabetes mellitus with diabetic peripheral angiopathy with gangrene (principal); L97.528 Non-pressure chronic ulcer of other part of left foot with other specified severity; I70.262 Atherosclerosis of native arteries of extremities with gangrene, left leg; E11.40 Type 2 diabetes mellitus with diabetic neuropathy, unspecified; E11.36 Type 2 diabetes mellitus with diabetic cataract; H26.9 Unspecified cataract; I25.10 Atherosclerotic heart disease of native coronary artery without angina pectoris; E11.22 Type 2 diabetes mellitus with diabetic chronic kidney disease; I13.2 Hypertensive heart and chronic kidney disease with heart failure and with stage 5 chronic kidney disease, or end stage renal disease; N18.6 End stage renal disease; I50.9 Heart failure, unspecified; F41.8 Other specified anxiety disorders; Z79.84 Long term (current) use of oral hypoglycemic drugs; Z95.5 Presence of coronary angioplasty implant and graft; Z95.1 Presence of aortocoronary bypass graft; Z95.2 Presence of prosthetic heart valve; Z95.820 Peripheral vascular angioplasty status with implants and grafts; Z89.611 Acquired absence of right leg above knee; Z85.828 Personal history of other malignant neoplasm of skin; Z87.891 Personal history of nicotine dependence
CPT/HCPCS: G0463

== ENCOUNTER 2020-08-19 00:20 | Day surgery (SDC) | payer MEDICARE ==
[2020-08-19] MEDS ORDERED: FURO20 PO (14:51)
== END 2020-08-19 23:45 ==
LOC: WOUND 00:20
DX: E11.621 Type 2 diabetes mellitus with foot ulcer (principal); L97.529 Non-pressure chronic ulcer of other part of left foot with unspecified severity; E11.52 Type 2 diabetes mellitus with diabetic peripheral angiopathy with gangrene; I96 Gangrene, not elsewhere classified; I25.10 Atherosclerotic heart disease of native coronary artery without angina pectoris; E11.40 Type 2 diabetes mellitus with diabetic neuropathy, unspecified
CPT/HCPCS: 73630; 99284-25; A9270; G0463

== ENCOUNTER 2020-08-19 13:49 | Emergency (ER) | payer MEDICARE ==
[~2020-08-19] VITALS: Ht 190.5 cm; Wt 88.5 kg
[2020-08-19] MEDS ORDERED: FURO20 PO (14:51)
== END 2020-08-19 16:32 | disposition home or self-care (01) ==
LOC: ER 13:49
DX: E11.52 Type 2 diabetes mellitus with diabetic peripheral angiopathy with gangrene (principal); I96 Gangrene, not elsewhere classified; E11.22 Type 2 diabetes mellitus with diabetic chronic kidney disease; I13.0 Hypertensive heart and chronic kidney disease with heart failure and stage 1 through stage 4 chronic kidney disease, or unspecified chronic kidney disease; I50.9 Heart failure, unspecified; N18.9 Chronic kidney disease, unspecified; E78.5 Hyperlipidemia, unspecified; I25.2 Old myocardial infarction; I25.10 Atherosclerotic heart disease of native coronary artery without angina pectoris; Z79.899 Other long term (current) drug therapy; Z95.5 Presence of coronary angioplasty implant and graft; Z87.891 Personal history of nicotine dependence
CPT/HCPCS: 73630; 99284-25; A9270

== ENCOUNTER 2020-08-27 14:10 | Inpatient (IN) | payer MEDICARE ==
[~2020-08-27] VITALS: Ht 190.5 cm; Wt 79.8 kg
[2020-08-27 14:57] LABS: BASOPHILS ABSOLUTE AUTO 0.05 K/mm3 (0.00-0.23); BASOPHILS PERCENT AUTO 1 % (0-2); EOSINOPHILS ABSOLUTE AUTO 0.32 K/mm3 (0.00-0.68); EOSINOPHILS PERCENT AUTO 4 % (0-6); Hemoglobin 10.5 g/dL (13.5-17.5); IMMATURE GRAN ABSOLUTE AUTO 0.02 K/mm3 (0.00-0.10); IMMATURE GRAN PERCENT AUTO 0 % (0-1); LYMPHOCYTES ABSOLUTE AUTO 2.07 K/mm3 (0.84-5.20); LYMPHOCYTES PERCENT AUTO 26 % (21-46); MONOCYTES ABSOLUTE AUTO 0.78 K/mm3 (0.16-1.47); MONOCYTES PERCENT AUTO 10 % (4-13); Mean Corpuscular HGB 29.2 pg (26.0-34.0); Mean Corpuscular HGB Conc 31.8 g/dL (31.5-36.5); Mean Corpuscular Volume 92 fL (80-100); Mean Platelet Volume 10.4 fL (9.1-12.4); NEUTROPHILS ABSOLUTE AUTO 4.62 K/mm3 (1.96-9.15); NEUTROPHILS PERCENT AUTO 59 % (41-73); Platelet Count 283 K/mm3 (150-400); RDW Coefficient Variation 14.7 % (11.7-14.2); RDW Standard Deviation 49.3 fL (35.1-46.3); White Blood Cell Count 7.86 K/mm3 (4.00-11.30)
[2020-08-27 15:21] LABS: Alanine Aminotransfer (ALT/SGP 16 U/L (12-78); Albumin, Blood 2.8 g/dL (3.4-5.0); Albumin/Globulin Ratio 0.6 (0.8-1.8); Alk Phos 118 U/L (50-136); Anion Gap 4 mmol/L (6-16); Aspartate Aminotrans (AST/SGOT 14 U/L (12-37); Bilirubin, Total 0.4 mg/dL (0.1-1.0); Blood Urea Nitrogen 15 mg/dL (8-24); CO2, Blood 28 mmol/L (21-32); Calcium, Blood 8.9 mg/dL (8.5-10.1); Chloride, Blood 105 mmol/L (98-108); Creatinine, Blood 0.94 mg/dL (0.60-1.20); Glomerular Filtration Rate >60 (60-); Glucose, Blood 141 mg/dL (70-99); Potassium, Blood 4.3 mmol/L (3.5-5.5); Sodium, Blood 137 mmol/L (136-145); Total Protein, Blood 7.8 g/dL (6.4-8.2)
[2020-08-27] MEDS ORDERED: HYDROCODONE-AC1 EAC7 PO (15:39)
[2020-08-27] MEDS ORDERED: CLIN150 PO (15:42)
[2020-08-27] MEDS ORDERED: CARVEDILOL12.5 MG PO (16:59)
[2020-08-27 19:25] LABS: Source, Urine Voided
[2020-08-27 19:33] LABS: Appearance, Urine Clear (Clear); Bilirubin, Urine Neg (Neg); Blood, Urine 4+ (Neg); Color, Urine Yellow (P-Yellow); Glucose Qualitative, Urine Neg (Neg); Ketones, Urine Neg (Neg); Leukocyte Esterase, Urine Neg (Neg); Nitrite, Urine Neg (Neg); Protein, Urine 1+ (Neg); Urobilinogen, Urine NORM (Normal)
[2020-08-27 19:44] LABS: Bacteria Rare /hpf; Squamous Epithelial Cells Few /hpf (Few); White Blood Cells, Urine 0-2 /hpf (0-5)
[2020-08-27] MEDS ORDERED: Aspir 8181 MG PO (19:51)
--- NOTE | 2020-08-27 21:15 | NUR ---
REPORT RECEIVED FROM PHILLED RN. PT TRANSPORTED TO MEDICAL FLOOR VIA [facility], SELF-TRANSFERRED FROM [facility] TO BED ON ARRIVAL TO FLOOR. PT ORIENTED TO ROOM/UNIT. VS OBTAINED. CALL LIGHT AND POSSESSIONS IN REACH, CONTINUE TO MONITOR.
--- NOTE | 2020-08-28 04:15 | NUR ---
SHIFT SUMMARY PT RESTING, IN NO ACUTE DISTRESS. WAS MONITORED EVERY 1-2 HOURS WITH NEEDS MET. VS REVIEWED, WNL. PT HAS HAD NO ACUTE CHANGES IN CONDITION SINCE ARRIVAL TO FLOOR. SLEPT T/O NIGHT. CONSULTS CALLED TO RESPECTIVE PROVIDERS, MESSAGES TO BE DELIVERED LATER THIS AM. NO ACUTE NEEDS ASSESSED AT THIS TIME. CALL LIGHT, POSSESSIONS IN REACH, BED IN LOW POSITION. CONTINUE TO MONITOR, REPORT OFF TO DAY RN.
[2020-08-28 05:01] LABS: BASOPHILS ABSOLUTE AUTO 0.04 K/mm3 (0.00-0.23); BASOPHILS PERCENT AUTO 1 % (0-2); EOSINOPHILS ABSOLUTE AUTO 0.31 K/mm3 (0.00-0.68); EOSINOPHILS PERCENT AUTO 4 % (0-6); Hematocrit 31.2 % (37.0-53.0); Hemoglobin 10.1 g/dL (13.5-17.5); IMMATURE GRAN ABSOLUTE AUTO 0.03 K/mm3 (0.00-0.10); IMMATURE GRAN PERCENT AUTO 0 % (0-1); LYMPHOCYTES ABSOLUTE AUTO 1.48 K/mm3 (0.84-5.20); LYMPHOCYTES PERCENT AUTO 20 % (21-46); MONOCYTES ABSOLUTE AUTO 0.93 K/mm3 (0.16-1.47); MONOCYTES PERCENT AUTO 12 % (4-13); Mean Corpuscular HGB 30.1 pg (26.0-34.0); Mean Corpuscular HGB Conc 32.4 g/dL (31.5-36.5); Mean Corpuscular Volume 93 fL (80-100); Mean Platelet Volume 10.7 fL (9.1-12.4); NEUTROPHILS ABSOLUTE AUTO 4.68 K/mm3 (1.96-9.15); NEUTROPHILS PERCENT AUTO 63 % (41-73); Platelet Count 258 K/mm3 (150-400); RDW Coefficient Variation 14.9 % (11.7-14.2); RDW Standard Deviation 49.6 fL (35.1-46.3); Red Blood Cell Count 3.36 M/mm3 (4.30-5.90); White Blood Cell Count 7.47 K/mm3 (4.00-11.30)
[2020-08-28 05:16] LABS: International Normalized Ratio 0.96; Prothrombin Time Results 10.3 Sec (9.7-11.5)
[2020-08-28 05:29] LABS: Alanine Aminotransfer (ALT/SGP 12 U/L (12-78); Albumin, Blood 2.6 g/dL (3.4-5.0); Albumin/Globulin Ratio 0.6 (0.8-1.8); Alk Phos 106 U/L (50-136); Anion Gap 6 mmol/L (6-16); Aspartate Aminotrans (AST/SGOT 10 U/L (12-37); Bilirubin, Total 0.4 mg/dL (0.1-1.0); Blood Urea Nitrogen 12 mg/dL (8-24); Bun/Creatinine Ratio 12.5 (12.0-20.0); CO2, Blood 28 mmol/L (21-32); Calcium, Blood 8.7 mg/dL (8.5-10.1); Chloride, Blood 105 mmol/L (98-108); Creatinine, Blood 0.96 mg/dL (0.60-1.20); Globulin, Blood 4.6 g/dL (2.2-4.0); Glomerular Filtration Rate >60 (60-); Glucose, Blood 135 mg/dL (70-99); Potassium, Blood 3.9 mmol/L (3.5-5.5); Sodium, Blood 139 mmol/L (136-145); Total Protein, Blood 7.2 g/dL (6.4-8.2)
[2020-08-28 16:29] LABS: Influenza A, PCR NEGATIVE (NEGATIVE); Influenza B, PCR NEGATIVE (NEGATIVE); Resp Syncytial Virus, PCR NEGATIVE (NEGATIVE); SARS-Cov-2 (COVID-19) PCR, MMC NEGATIVE (NEGATIVE)
--- NOTE | 2020-08-28 23:06 | NUR ---
ARRIVAL TO ICU 16 PT ARRIVED TO ICU 16 AT 1950 VIA ICU BED THAT WAS TAKEN OVER TO MASH PROCESSING OPERATOR EARLIER. CATH SITE TO RT GROIN AND LT FOOT SHOW NO SIGNS OF BLEEDING OR HEMATOMA. UNABLE TO FIND PULSES IN LT FOOT WITH DOPPLER, LT FOOT IS COOL TO TOUCH, AND PALE/DUSKY. HEPARIN GTT INFUSING AT 300UNITS/HR THROUGH LT FOOT SITE. CATHFLO GTT INFUSING AT 1MCG/HR FOR 6HRS VIA RT GROIN SITE. PT COMPLAINING OF SEVERE PAIN TO LT FOOT AND FREQUENTLY MOVES AROUND IN BED EVEN AFTER REMINDER TO NOT SIT UP OR BEND LEGS. HR 110-140. SBP >200. AFIBRILE. SPO2 >90% ON RA. PT DIAPHORETIC BUT NO COMPLAINTS OF NAUSEA OR CHEST PAIN.
--- NOTE | 2020-08-28 23:16 | NUR ---
HTN AND PAIN DR LEE CALLED DUE TO INCREASE COMPLAINTS OF PAIN AND HTN. NEW ORDERS PROVIDED FOR PRN FENTANYL 100MCG Q1HR FOR PAIN. A SERIES OF ORDERS FOR HTN PROVIDED FOLLOWS; 10MG HYDROLAZINE NOW, WAIT 20MIN; IF NO IMPROVEMENT, ANOTHER 10MG HYDROLAZINE, WAIT 20MIN; IF NO IMPROVEMENT IN BP 10 MG LABETALOL, WAIT 20MIN; IF NO IMPROVEMENT, ANOTHER 10MG LABETALOL, WAIT 20MIN; IF NO IMPROVMENT NOW, CONTACT DR LEE. BOTH DOSES OF HYDROLAZINE GIVEN AND THEN LABETALOL GIVEN BEFORE IMPROVMENT TO HTN; SEE EMAR FOR TIMES. PAIN UNDER CONTROL NOW. CATH SITE TO RT GROIN AND LT FOOT SHOW NO SIGNS OF BLEEDING OR HEMATOMA. DOPPLER PULSES TO LT FOOT CHECKED Q15MIN X4 AND PULSE ABSENT ALL 4 TIMES. WILL CONT TO CHECK PULSES WITH DOPPLER.
--- NOTE | 2020-08-29 00:14 | NUR ---
UPDATE: PT AWAKES & BEGINS PULLING @ FEMSTOP DEVICE, CRYING OUT TO "GET IT OFF". RN @ BEDSIDE & PT REPORTS PAIN TO R GROIN SITE. SITE DOES APPEAR TO BE SLIGHTLY MORE SWOLLEN W/ DISCOLORATION. REGISTERED NURSE AMBULATORY CALLED TO ASSIST. PULSES STILL FOUND W/ DOPPLER & DISTAL SENSATION UNCHANGED. FEMSTOP DEVICE REPOSITIONED & PT MEDICATED FOR PAIN. NOW APPEARS MORE COMFORTABLE.
--- NOTE | 2020-08-29 02:37 | NUR ---
CATHFLO ORDERED, CATHFLO DECREASED TO 0.5MG/HR AT 0235 FOR THE NEXT 16HR.
--- NOTE | 2020-08-29 07:19 | NUR ---
END OF SHIFT SUMMARY PT IS MORE ALERT AND ORIENTED THAN EARLIER IN THE SHIFT. PT PAIN IS UNDER CONTROL AND WAS ABLE TO SLEEP FOR A FEW HOURS. AFIBRILE. SPO2 >90% ON RA. HR 90-100. SBP 160-170'S AFTER DOSE OF LABETALOL. RT GROIN CATH SITE SHOWS NO SIGNS OF BLEEDING OR HEMATOMA; TPA INFUSING AT 0.5MG/HR. LT FOOT CATH SITE SHOWS NO SIGNS OF BLEEDING OR HEMATOMA; HEPARIN INFUSING AT 300UNITS/HR. PT SCRATCHED VARIES PLAQUES ON SKIN. REPORT GIVEN TO ADY CONTRERAS.
--- NOTE | 2020-08-29 07:45 | NUR ---
[place] of Care: Care assumed at 0700hr. Patient sleeping, but easliy roused to verbal stimuli. Oriented to self, but confused to place and reason for admission. Per patient's , he has confusion at baseline. Rt groin arterial sheath in place, with TPA infusing per EMAR, lt posterior tibial arterial sheath in place with Heparin infusing per EMAR. Both Heparin and TPA doses confirmed with NOC shift RN, both sites wnl, dressings intact. Lt great toe is black, present on admission per NOC shift RN, remain toes to lt foot are pale and cyanotic, also present upon admission. Lt foot pulses positive per doppler. Plan for patient to return to laborer adjustable steel joist today. During shift change, noted that patient's fibrinogen levels had significantly dropped throughout the night. Call then placed to Dr. Alvarado this morning. Received orders to stop TPA infusion, stop heparin infusion throughout posterior tibial sheath, and to infuse Heparin per Pharmacy Consult through rt groin sheath. Other than confusion, neuro assessment wnl. Will continue to monitor.
--- NOTE | 2020-08-29 16:10 | NUR ---
Return from laborer drying department: Patient returned from laborer drying department at 1600hr. No sheaths in place upon arrival from laborer drying department, 2 stents placed per laborer drying department RN's. lt posterior tibial site re-dressed in room by laborer drying department RN per bleeding and placement of pressure dressing in laborer drying department. lt posterior site now stable, with TEG CHG dressing in place, no s/s of hematoma noted. Rt groin site has small hematoma but no change since leaving laborer drying department per laborer drying department RN. Rt groin remains stable, hematoma not increasing in size. Patient hypertensive, systolic 170's-190 upon arrival. Spoke with Dr. Mueller and received order for PRN Labetalol, x1 dose given with good effect. echo vascular tech in room at this time. Call light in reach, patient instructed to remain lying flat at this time. Will continue to monitor.
--- NOTE | 2020-08-29 19:15 | NUR ---
ASSUMING PT CARE: PT LAYING IN BED, REVERSE [place]BURG POSITION W/ HEAD ELEVATED 15 DEGREES. PT IS PLEASANT & APPROPRIATELY INTERACTIVE W/ STAFF. CONFUSED @ TIMES, UNSURE OF HIS AGE & HOW TO USE TV REMOTE, HOWEVER PT IS EASILY REORIENTED. FEM-STOP TO R GROIN SITE, AIR PRESSURE IS OFF BUT THERE IS CONTINUOUS PRESSURE FROM FEM-STOP SECUREMENT STRAPS. AREA OF PURPLE DISCOLORATION MARKED BY PREVIOUS RN & NO NEW DISCOLORATION NOTED. NO ABD TENDERNESS. R POPLITEAL PULSE & L PEDAL PULSE OBTAINED W/ DOPPLER & MARKED. WILL CONTINUE TO MONITOR & REPORT APPROPRIATE.
--- NOTE | 2020-08-29 19:33 | NUR ---
Shift Summary: See previous notes r/t return from research laboratory manager. At approx 1730hr, increase in rt groin hematoma noted. Manual pressure applied and rn charge Stacey contacted Dr. Alvarado. Dr. Alvarado then instructed to apply fem-stop but not to apply occlusive pressure. Also instructed to not start peripheral IV Heparin until groin site is stable. Fem-stop applied to rt groin and pressure inflated to 130, peripheral pulses confirmed positive in per Doppler. Site remained stable throughout remainder of shift, no further increase in hematoma. Pressure on fem-stop released but device remains in place, peripheral pulses remain positive. Site's assessed and reviewed with NOC shift RN. VS remain stable.
--- NOTE | 2020-08-30 00:15 | NUR ---
UPDATE: PT AWAKES & BEGINS PULLING @ FEMSTOP DEVICE, CRYING OUT TO "GET IT OFF". RN @ BEDSIDE & PT REPORTS PAIN TO R GROIN SITE. SITE DOES APPEAR TO BE SLIGHTLY MORE SWOLLEN W/ DISCOLORATION. HOT WORT SETTLER CALLED TO ASSIST. PULSES STILL FOUND W/ DOPPLER & DISTAL SENSATION UNCHANGED. FEMSTOP DEVICE REPOSITIONED & PT MEDICATED FOR PAIN. NOW APPEARS MORE COMFORTABLE.
--- NOTE | 2020-08-30 03:52 | NUR ---
UPDATE: PT APPEARS MUCH MORE COMFORTABLE AFTER IV FENTANYL & PO NORCO; SLEEPING SOUNDLY WHEN UNDISTURBED, AWAKES MOMENTARILY FOR ASSESSMENTS & QUICKLY RETURNS TO SLEEPING. FEMSTOP DEVICE REMAINS IN PLACE, AIR PRESSURE OFF BUT SECUREMENT STRAPS HOLDING PRESSURE. R POPLITEAL & L PEDAL PULSES IMPROVING, NOW FAINT TO PALPATION & ++ W/ DOPPLER. DISTAL CAP REFIL >3sec, BUT WARM & IMPROVING IN COLOR. SITE CONTINUES TO BE REASSESSED Q1hr.
--- NOTE | 2020-08-30 05:00 | NUR ---
UPDATE: FEMSTOP REMOVED x30MIN & SITE REMAINS STABLE; SOFT, NONTENDER, W/ NO NEW DISCOLORATION. ++R POPLITEAL & L PEDAL PULSES. HEPARIN RESTARTED PER @ 15u/kg/hr. PHARMACY UPDATED FOR HEPARIN MAINTENANCE. WILL CONTINUE TO MONITOR CLOSELY.
[2020-08-30 06:12] LABS: Hematocrit 29.1 % (37.0-53.0); Hemoglobin 9.6 g/dL (13.5-17.5); Mean Corpuscular HGB 29.7 pg (26.0-34.0); Mean Corpuscular Volume 90 fL (80-100); Mean Platelet Volume 10.5 fL (9.1-12.4); Platelet Count 163 K/mm3 (150-400); RDW Coefficient Variation 15.3 % (11.7-14.2); RDW Standard Deviation 50.8 fL (35.1-46.3); Red Blood Cell Count 3.23 M/mm3 (4.30-5.90); White Blood Cell Count 11.23 K/mm3 (4.00-11.30)
--- NOTE | 2020-08-30 06:20 | NUR ---
SHIFT SUMMARY: PT INITIALLY HAD DIFFICULTY SLEEPING LAST NIGHT D/T PERSISTENT PAIN TO R GROIN SITE & DISCOMFORT LAYING SUPINE IN BED. AFTER PAIN MEDS, MELATONIN & SLIGHT REPOSITIONING, PT WAS ABLE TO SLEEP. AT THE START OF SHIFT, FEMSTOP WAS ASSESSED Q1hr W/ SLIGHT PRESSURE RELEASED EACH TIME UNTIL DEVICE WAS FULLY REMOVED. R GROIN SITE REMAINED STABLE & HEPARIN GTT WAS RE-STARTED PER MD. ++R POPLITEAL & L PEDAL PULSES BY DOPPLER & FAINT BY PALP. L TIBIAL SURGICAL SITE WNL, DRESSING C/D/I. VSS. NO ACUTE NEG CHANGES.
[2020-08-30 06:28] LABS: Albumin, Blood 2.6 g/dL (3.4-5.0); Anion Gap 8 mmol/L (6-16); Blood Urea Nitrogen 20 mg/dL (8-24); Bun/Creatinine Ratio 16.9 (12.0-20.0); CO2, Blood 24 mmol/L (21-32); Calcium, Blood 8.4 mg/dL (8.5-10.1); Chloride, Blood 105 mmol/L (98-108); Creatinine, Blood 1.18 mg/dL (0.60-1.20); Glomerular Filtration Rate >60 (60-); Glucose, Blood 143 mg/dL (70-99); Phosphorus, Blood 3.7 mg/dL (2.5-4.9); Potassium, Blood 3.9 mmol/L (3.5-5.5); Sodium, Blood 137 mmol/L (136-145)
--- NOTE | 2020-08-30 09:32 | NUR ---
AM NOTE... ASSUMED CARE OF PT APROX 0700, PT IS A&Ox3 WITH SOME CONFUSION AT TIMES BUT RE-ORIENTS EASILY. PT'S VS STABLE AT THIS TIME. PT IS IN SR W/PACs NO EDEMA NOTED ON ASSESSMENT, BP STABLE, PT DENIES CHEST PAIN/PRESSURE N/V OR SOB. PT HAS RIGHT GROIN SITE WITH A LARGE AREA OF BRUSING NOTED, AREA IS SOFT AND SLIGHLTY TENDER TO PALP, NO SWELLING, BLEEDING OR HEMATOMA NOTED AT THIS TIME. DRESSING IS C/D/I TO THE RIGHT GROIN AREA. L/S ARE COARSE W/SCATTERED RHONCI T/O, PT IS ON RA WITH O2 SATS >92%, RR 16-18 EVEN AND UNLABORED. BT PRESENT AND HYPOACTIVE, ABD IS SOFT AND SLIGHTLY TENDER TO PALP IN THE RLQ AND LLQ. LLE PULSES FOUND BY DOPPLER, LEFT FOOT IS PINK AND DARK PINK/RED TO THE TOES, RIGHT GREAT TOE IS ALL DRY AND BLACK. GOOD CAP REFILL NOTED TO THE TOP OF THE LEFT FOOT AND ALL THE TOES BUT THE GREAT TOE. PT'S LEFT LEG AND THE FOOT HAS WARM AND COOL PATCHES. PT IS ON HEPARIN GTT RUNNING PER ORDERS AT 15U/KG/HR. PT ATE 90% OF HIS CLEAR LIQUID BREAKFAST. CALL LIGHT IN REACH WILL CONTINUE TO MONITOR.
--- NOTE | 2020-08-30 10:38 | NUR ---
PT UPDATE... PT'S BP WENT FROM 140'S-150'S SYSTOLIC TO THE 80'S-90'S SYSTOLIC WITH MAPS BELOW 60. CHARGE NURSE NOTIFIED, PT'S GROIN SITE WAS STABLE, PT DENIED ANY CHEST PAIN/PRESSURE, ABD/FLANK PAIN, NO SWELLING OR HEMATOMA NOTED ON REASSESSMENT. PT'S I'S & O'S CHECKED, PT HAD NOT VOIDED FOR A WHILE, BLADDER SCAN WAS DONE AND FOUND TO HAVE 287MLS, PT STATED HE DID NOT FEEL LIKE HE HAD TO VOID AT ALL. DR. MOLINA NOTIFIED. WILL CONTINUE TO MONITOR.
--- NOTE | 2020-08-30 12:14 | NUR ---
PT UPDATE... 1205: CALLED DR. KRAMER TO UPDATE HIM AND SEE WHAT TIME HE PLANNED ON COMING IN TO SEE THE PT TODAY. DR. KRAMER SAID THAT HE WANTED TO WAIT UNTIL TUESDAY BECAUSE HE HAD CONCERNS FROM THAT THE PROCEDURE "HAS A HIGH LIKELY FINCH OF FAILURE" AND DR. KRAMER DID NOT WANT TO AMPUTATE THE TOE IF DR. LEE'S PROCEDURE MIGHT FAIL. WILL CONTINUE TO MONITOR.
--- NOTE | 2020-08-30 14:50 | NUR ---
PT UPDATE... PT HAD AN EPISODE OF URINARY INCONT AFTER HE HAD VOIDED 100MLS IN THE URINAL. PT'S RIGHT GROIN SITE WAS STABLE AND A BED BATH AND LINEN CHANGE WAS GIVEN PT WAS COOPERATIVE WITH CARE AND FOLLOW COMMANDS, NO OTHER SKIN ISSUES NOTED BESIDES HIS LEFT FOOT. PT'S CALLED AND WAS UPDATED ON DR. JOHNSTON'S PLAN TO ASSESS THE PT ON TUESDAY AND GO FROM THERE. SHE WAS AGREEABLE WITH THIS PLAN OF CARE. WILL CONTINUE TO MONITOR.
--- NOTE | 2020-08-30 18:03 | NUR ---
SHIFT SUMMARY... NO ACUTE NEGATIVE CHANGES NOTED THIS SHIFT. PT'S VS HAVE BEEN STABLE SINCE THIS AM. PT'S RIGHT GROIN SITE HAS BEEN STABLE T/O THE SHIFT. PT HAS BEEN MEDICATED FOR LLE PAIN PER EMAR. PT WAS GIVEN A BEDBATH D/T AN EPISODE OF URINARY INCONT. PT'S HAS BEEN UPDATED SEVERAL TIMES THIS SHIFT. PT CONTINUES TO BE ON A HEPARIN GTT RUNNING AT 17U/KG/HR PER ORDERS. PT'S PEDAL AND TIBIAL PULSES ARE FOUND WITH THE DOPPLER. CALL LIGHT IN REACH WILL CONTINUE TO MONITOR UNTIL REPORT IS GIVEN TO ONCOMING RN.
--- NOTE | 2020-08-30 19:45 | NUR ---
ASSUMING PT CARE: PT LAYING SUPINE IN BED, HOB @ 30 DEGREES. APPROPRIATELLY INTERACTIVE W/ STAFF. COOPERATIVE. OCCASSIONALLY FORGETFUL, PT UNSURE WHY HE CAME INTO THE HOSPITAL & AT TIMES CONFUSED BY ICU EQUIPMENT; EASILY REORIENTED. HEPARIN GTT @ 17u/kg/hr, INF W/ NO S/Sx OF INFILTRATION. R GROIN SITE APPEARS DARK PURPLE ONLY SLIGHTLY OUTSIDE THE BORDER DRAWN BY PREVIOUS RN. SITE IS SOFT, NONTENDER. CHG DRESSING C/D/I W/ SM AMT OF DRIED BLOOD TO THE CENTER. DISTAL PULSES ++ BY DOPPLER - MARKED W/ SKIN PEN. PT DENIES ANY C/O PAIN OR DISCOMFORT @ THIS TIME. CALL LIGHT W/ IN REACH.
--- NOTE | 2020-08-31 04:00 | NUR ---
UPDATE: PT IS HAVING MUCH DIFFICULTY SLEEPING & COPING W/ PAIN TO HIS L GREAT TOE. HE APPEARS MUCH MORE CONFUSED THAN COMPARED TO LAST NIGHT. PT OFTEN AWAKES & YELLS OUT FOR HELP, DOES NOT REMEMBER WHERE HE IS OR WHY HE IS IN THE HOSPITAL. SEVERAL TIMES PT FORGOT HE HAD A GANGRENOUS TOE & CALLED OUT TO STAFF TO COME LOOK AT IT BECAUSE HIS TOE "HAD TURNED BLACK". PT DIFFICULT TO REORIENT. AFTER SEVERAL DOSES OF IV & PO PAIN MEDS & REPOSITIONING PT IS FINALLY RESTING SOUNDLY. VSS.
[2020-08-31 05:19] LABS: Hematocrit 25.2 % (37.0-53.0); Hemoglobin 8.3 g/dL (13.5-17.5); Mean Corpuscular HGB Conc 32.9 g/dL (31.5-36.5); Mean Corpuscular Volume 91 fL (80-100); Platelet Count 156 K/mm3 (150-400); RDW Coefficient Variation 15.3 % (11.7-14.2); RDW Standard Deviation 50.6 fL (35.1-46.3); Red Blood Cell Count 2.77 M/mm3 (4.30-5.90); White Blood Cell Count 10.41 K/mm3 (4.00-11.30)
--- NOTE | 2020-08-31 05:38 | NUR ---
SHIFT SUMMARY: PT HAD DIFFICULTY SLEEPING & W/ PAIN CONTROL FOR MOST OF THE NIGHT. PT NOW APPEARS TO BE SUFFERING FROM DELIRIUM BUT CONTINUES TO BE COOPERATIVE. R GROIN SITE WNL & UNCHANGED W/ SOME PREVIOUS DISCOLORATION SEEPING INTO DISTAL TISSUES. HOWEVER SURROUNDING AREA CONTINUES TO BE SOFT, NONTENDER. R POPLITEAL, L TIBIAL & L PEDAL PULSES ++ W/ DOPPLER & MARKED. PT OTHERWISE STABLE THROUGHOUT THE NIGHT. HEPARIN GTT UNCHANGED @ 17u/kg/hr.
--- NOTE | 2020-08-31 09:54 | NUR ---
AM NOTE... ASSUMED CARE OF PT APROX 0700. PT IS A&Ox2 TODAY, THIS IS A CHANGE FROM YESTERDAY, PT KNOWS HE IS IN THE HOSPTIAL IN [place] BUT DOES NOT KNOW THE YEAR, MONTH OR WHY HE IS HERE, PT BECOMES UPSET WHEN HE SEES HIS LEFT TOE ASKING "WHY IS IT BLACK?" WHEN PT IS RE-ORIENTED HE SAYS "OH YEAH OKAY I REMEMBER NOW." BUT IN A FEW SHORT MINUTES HE IS ASKING THE SAME QUESTIONS AGAIN. PT'S VS STABLE AT THIS TIME, HEPARIN GTT RUNNING PER ORDERS AT 17U/KG/HR. PULSES ON THE LLE ARE DOPPLER ONLY AT THIS TIME, LLE IS COMMERCIAL INSTRUCTOR SUPERVISOR SOME AREAS AND COOL IN OTHERS, LEFT FOOT IS REDDISH/PINK WITH GOOD CAP REFILL. L/S COARSE T/O, ON RA WITH O2 SATS>90%. BT PRESENT AND HYPOACTIVE, ABD IS SOFT AND NONTENDER TO PALP. RIGHT GROIN SITE HAS BRUSING IN THE AREA BUT CONTINUES TO BE SOFT AND NONTENDER TO PALP. CALL LIGHT IN REACH WILL CONTINUE TO MONITOR.
--- NOTE | 2020-08-31 17:43 | NUR ---
SHIFT SUMMARY.... NO ACUTE NEGATIVE CHANGES NOTED THIS SHIFT. PT'S VS HAVE BEEN STABLE T/O SHIFT. PT CONTINUES TO BE CONFUSED BUT COOPERATIVE AND PLEASENT WITH CARE. PT HAD A BM THIS SHIFT AND HAD STUCK HIS HANDS IN THE ATTENDS GETTING STOOL ON HIS BLANKETS AND GOWN. PT HAS BEEN INCONT OF URINE THIS SHIFT WELL. PT'S GROIN SITE CONTINUES TO BE STABLE. LLE PULSES FOUND BY DOPPLER. PT MEDICATED FOR PAIN PER EMAR THIS SHIFT. NO EVENTS NOTED ON TELE THIS SHIFT. PT'S CALLED AND UPDATED ON PLAN OF CARE AND PT'S CONDITION. HEPARIN GTT RUNNING PER ORDERS. PER THE PLAN PT IS TO BE SEEN BY DR. KRAMER TOMORROW, IT IS UNKNOWN AT THIS TIME IF HE WILL GO TO THE OR TOMORROW OR THE NEXT DAY. CALL LIGHT IN REACH WILL CONTINUE TO MONITOR UNTIL REPORT IS GIVEN TO ONCOMING RN.
--- NOTE | 2020-08-31 19:30 | NUR ---
ASSUMING PT CARE: PT SITTING UP IN BED, TALKING ON THE PHONE W/ HIS . APPROPRIATELY INTERACTIVE W/ STAFF. FOLLOWING DIRECTIONS THOUGH CONFUSED ON WHERE HE IS & WHY HE IS IN THE HOSPITAL. PT OTHERWISE COOPERATIVE & PLEASANT. R GROIN SITE SOFT, NONTENDER. PURPLE DISCOLORATION APPEARS TO HAVE MOVE DISTALLY SOMEWHAT FROM YESTERDAY, NOW INVOLVING SCROTUM & PENIS. AREA REMAINS SOFT, NONTENDER. PT REPOSITIONED SUPINE & PROVIDED W/ BLANKETS. HEPARIN GTT @ 17u/kg/hr. WILL CONTINUE TO MONITOR & REPORT APPROPRIATE.
--- NOTE | 2020-09-01 00:30 | NUR ---
UPDATE: PT HEARD CALLING FOR HELP, RN @ BEDSIDE & PT'S IV CATHETER IS LAYING ON HIS CHEST. LINENS & PT ARE SATURATED W/ BLOOD. PT STS IT WAS AN ACCIDENT & ONLY REMEMBERS ROLLING OVER IN BED TO FIND BLOOD. CATH TIP INTACT, NO INFILTRATION NOTED & BLEEDING EASILY CONTROLLED W/ GAUZE & COBAN.
--- NOTE | 2020-09-01 01:45 | NUR ---
UPDATE: PT FOUND TO BE ATTEMPING TO GET OUT OF BED W/ LEG HANGING OFF BED. PT REFUSING TO GET INTO A SAFE POSITION IN THE BED. BECOMING INCREASINGLY AGITATED & RAISING HIS VOICE. CONFUSION HAS CONTINUED TO WORSEN. PT NOW BELIEVES HE IS AT A "BIG HOUSE" & WANTS GO HOME "I HAVE A AND 2 KIDS WAITING FOR ME". PT IS UNABLE TO BE REORIENTED; ACUSING STAFF OF "TRYING TO RIP ME OFF" & ATTEMPTING TO "CALL THE POLICE". SECURITY CALLED TO STANDBY. ARCHANA UPDATED & NEW ORDERS GIVEN FOR IV HALDOL. PT REFUSES CARE FROM THIS RN. RELOCATION COORDINATOR @ BEDSIDE. AFTER SEVERAL MINUTES PT AGREES TO STAY IN BED & RECEIVE MEDS. WILL CONTINUE TO MONITOR CLOSELY.
--- NOTE | 2020-09-01 03:09 | NUR ---
UPDATE: PT CONTINUES TO STAY IN BED & CONTRACT FOR SAFETY TO REMAIN IN BED. PT CONTINUES W/ PARANOID THOUGHT PROCESS & AGITATION. WHEN STAFF ENTERS ROOM PT RAISES VOICE IN "WHAT? WHAT DO YOU WANT", HE DENIES ANY NEEDS @ THIS TIME & REFUSES NURSING CARE. INCREASED STAFF AWARENESS TO PT'S CONFUSION, CURTAIN OPEN, & BED ALARM ON.
[2020-09-01 04:16] LABS: Hematocrit 25.4 % (37.0-53.0); Hemoglobin 8.2 g/dL (13.5-17.5); Mean Corpuscular HGB 29.7 pg (26.0-34.0); Mean Corpuscular HGB Conc 32.3 g/dL (31.5-36.5); Mean Corpuscular Volume 92 fL (80-100); Mean Platelet Volume 11.4 fL (9.1-12.4); Platelet Count 210 K/mm3 (150-400); RDW Coefficient Variation 15.4 % (11.7-14.2); Red Blood Cell Count 2.76 M/mm3 (4.30-5.90); White Blood Cell Count 12.61 K/mm3 (4.00-11.30)
[2020-09-01 04:30] LABS: Albumin, Blood 2.7 g/dL (3.4-5.0); Anion Gap 7 mmol/L (6-16); Blood Urea Nitrogen 27 mg/dL (8-24); Bun/Creatinine Ratio 23.7 (12.0-20.0); CO2, Blood 24 mmol/L (21-32); Calcium, Blood 8.8 mg/dL (8.5-10.1); Chloride, Blood 105 mmol/L (98-108); Creatinine, Blood 1.14 mg/dL (0.60-1.20); Glomerular Filtration Rate >60 (60-); Glucose, Blood 189 mg/dL (70-99); Phosphorus, Blood 3.2 mg/dL (2.5-4.9); Potassium, Blood 3.8 mmol/L (3.5-5.5); Sodium, Blood 136 mmol/L (136-145)
--- NOTE | 2020-09-01 11:03 | NUR ---
ASSUMED CARE OF PT, REPORT RCV'D FROM BEN ORANTES. PT ALERT TO VERBAL STIMULI, OCCASIONALLY CONFUSED AND REQUIRES FREQUENT REORIENTATION, BED ALARM ON/DOOR AND CURTAIN OPEN . PT REQUESTING TO CALL FREQUENTLY, THIS RN SPOKE WITH WHO CONFIRMS PT'S CONFUSION IS BASELINE. PT ABLE TO APPROPRIATELY USE CALL LIGHT AND EXPRESS NEEDS. RIGHT FEMORAL ACCESS SITE HAS 1 INCH HARD KNOT NOTED AT PUNCTURE SITE, WITH EXTENSIVE BRUISING TO FEMORAL AREA TO RIGHT HIP TO RIGHT GROIN AREA. REMAINING FEMORAL SITE IS SOFT/NONTENDER. PER TRENCHER DRIVER NURSE, AREA IS UNCHANGED. PT DENIES PAIN AT THIS TIME. HEPARIN INFUSING @ 19 U/KG/HR (80 KG DOSE WT). PLAN FOR PT TO GO TO VIDEO GAME SCRIPT WRITER TODAY. PT AND UPDATED WITH PLAN OF CARE. SEE FULL SHIFT ASSESSMENT.
--- NOTE | 2020-09-01 15:41 | NUR ---
REPORT GIVEN TO BRYN Bustos RN. PT TO BE TRANSFERRED TO MEDICAL FLOOR ROOM 363. PT TRANSFERRED VIA WHEELCHAIR BY CPT'S. PT'S AT BEDSIDE. HEPARIN INFUSING AT 18 U/KG/HR (80 KG DOSE WT)
--- NOTE | 2020-09-01 17:46 | NUR ---
SHIFT SUMMARY ICU TRANSFER THIS AFTERNOON. PATIENT PALE, DIPHORETIC, AND SHORT OF BREATH UPON ARRIVAL TO ROOM. VITAL SIGNS STABLE BUT BP NOTED TO BE LOWER THAN PATIENT AVERAGE AT 101/60. 2L/NC FOR COMFORT. PATIENT TRANFERED TO BED, AND REPORTED HE WAS FEELING BETTER. VITALS STABLE UPON RECHECK. PATIENT THEN BEGAN VOMITING X2 EPISODES, ZOFRAN GIVEN. PATIENT CONFUSED AT BASELINE. BED ALARM ON. HEPARIN DRIP RUNNING AT 18 U/KG/HR. CBG IN 200'S. ENVIRONMENTAL SAMPLING TECHNICIAN CALLED WHEN PATIENT WAS AGAIN FOUND TO BE DIAPHORETIC, PALE, AND NON RESPONSIVE. PT REPORTS CHEST PAIN WHEN AROUSED. EKG SHOWS NSR, DOES TELEMETRY. PATIENT GIVEN 1 LITER BOLUS. POWEGLIDE AND PERIPHERAL IV PLACEMENT UNSUCCESSFUL. BMP, CBC, APTT, AND TROPONIN ORDERED. LAB CURRENTLY UNSUCCESSFUL WITH DRAW AND SENDING ANOTHER TURPENTINE DISTILLER. PATIENT BP STABLE AT 151/66 WITH HR IN 70'S AT SHIFT CHANGE.
[2020-09-01 19:39] LABS: BASOPHILS ABSOLUTE AUTO 0.03 K/mm3 (0.00-0.23); BASOPHILS PERCENT AUTO 0 % (0-2); EOSINOPHILS ABSOLUTE AUTO 0.01 K/mm3 (0.00-0.68); EOSINOPHILS PERCENT AUTO 0 % (0-6); Hematocrit 18.1 % (37.0-53.0); IMMATURE GRAN ABSOLUTE AUTO 0.24 K/mm3 (0.00-0.10); IMMATURE GRAN PERCENT AUTO 2 % (0-1); LYMPHOCYTES ABSOLUTE AUTO 1.58 K/mm3 (0.84-5.20); LYMPHOCYTES PERCENT AUTO 11 % (21-46); MONOCYTES ABSOLUTE AUTO 1.53 K/mm3 (0.16-1.47); MONOCYTES PERCENT AUTO 11 % (4-13); Mean Corpuscular HGB 29.6 pg (26.0-34.0); Mean Corpuscular HGB Conc 30.9 g/dL (31.5-36.5); Mean Corpuscular Volume 96 fL (80-100); Mean Platelet Volume 11.8 fL (9.1-12.4); NEUTROPHILS ABSOLUTE AUTO 10.99 K/mm3 (1.96-9.15); NEUTROPHILS PERCENT AUTO 76 % (41-73); NRBC ABSOLUTE 0.04 K/mm3 (0.00-0.02); NRBC Auto 0.3 /100 WBC (0.0-0.2); Platelet Count 190 K/mm3 (150-400); RDW Coefficient Variation 15.7 % (11.7-14.2); RDW Standard Deviation 53.4 fL (35.1-46.3); Red Blood Cell Count 1.89 M/mm3 (4.30-5.90); White Blood Cell Count 14.38 K/mm3 (4.00-11.30)
[2020-09-01 19:46] LABS: Bun/Creatinine Ratio 20.1 (12.0-20.0); Calcium, Blood 7.7 mg/dL (8.5-10.1); Creatinine, Blood 1.59 mg/dL (0.60-1.20); Potassium, Blood 4.7 mmol/L (3.5-5.5); Troponin I 0.064 ng/mL (0.000-0.040)
[2020-09-01 19:51] LABS: Hemoglobin 5.6 g/dL (13.5-17.5)
--- NOTE | 2020-09-01 20:08 | NUR ---
HG 5.6; ELIZA DAVIS, ESTEBAN ADVISED WITH ORDERS TRANSFUSE 1 UNIT PRBC AND TURN OFF HEPARIN GTT NOW; ELIZA INTENDS TALK WITH DR TOURE REGARDING PTS CURRENT STATUS.
[2020-09-01 21:55] LABS: PCO2 Arterial 38.5 mmHg (35-45); PO2 Arterial 307 mmHg (80-100)
[2020-09-01 21:57] LABS: Hematocrit 20.5 % (37.0-53.0); Hemoglobin 6.1 g/dL (13.5-17.5); Mean Platelet Volume 12.1 fL (9.1-12.4); Platelet Count 94 K/mm3 (150-400)
[2020-09-01 22:21] LABS: Calcium, Blood 7.5 mg/dL (8.5-10.1); Magnesium, Blood 2.3 mg/dL (1.6-2.4)
[2020-09-01 22:25] LABS: International Normalized Ratio 1.28; Prothrombin Time Results 13.5 Sec (9.7-11.5)
--- NOTE | 2020-09-01 22:49 | NUR ---
2055: PT ARRIVES TO ICU FROM MEDICAL FLOOR VIA BED, SKIN IS MARKEDLY PALE, PT COOL TO THE TOUCH, DIAPHORETIC, NRB MASK IN PLACE WITH OXYGEN AT 15 L/MIN, RESPIRATIONS APPEAR AGONAL, FAINT CENTRAL PULSES, PT SLIDE TRANSFERRED TO ICU BED. ZOLL PADS IN PLACE 2057: NO PALPABLE PULSES, BACKBOARD PLACED, COMPRESSIONS STARTED, RESP VIA BVM WITH OXYGEN AT 15 L/MIN, CODE CALLED, SEE CODE RECORD 2099: DR MERRILL AND ER TEAM ARRIVES TO BEDSIDE, EPINEPHRINE 1MG IV ADMIN, HOSPITALIST ELIZA AT ROOM, MASSIVE TRANSFUSION ORDERED 2101: 1ST UNIT [facility] STARTED TRANSFUSING AT WIDE OPEN 2103: PT INTUBATED BY DR MERRILL, ETT 8.0 24 CM AT LIP 2105: RHYTHM CHECK, ASYSTOLE NOTED, FFP STARTED TRANSFUSING, COMPRESSIONS RESUMED 2106: EPINEPHRINE 1 MG ADMINISTERED IV 2107: IO PLACED TO LEFT TIBIA 2109: EPINEPHRINE 1 MG ADMINISTERED IO, ATROPINE 1 MG ADMINISTERED, PROTAMINE SULFATE 50 MG ADMINISTERED 2112: EPINEPHRINE 1 MG ADMINISTERED 2113: ATROPINE 1 MG ADMINISTERED, PULSE CHECK, FEMORAL PULSE NOW PRESENT, RATE 36 ON MONITOR 2115: PULSE NO LONGER PRESENT, CPR RESUMED 2118: EPINEPHRINE 1 MG ADMIN, FEMORAL PULSE PRESENT, RATE 80S 2119: EPINEPHRINE GTT STARTED INFUSING AT 30 MCG/MIN VIA IO ACCESS 2122: BP 113/75, EPINEPHRINE GTT DECREASED TO 25 MCG/MIN 2123: 1ST UNIT FFP COMPLETED INFUSING, SECOND UNIT FFP STARTED 2129: HEART RATE DECREASED TO 50S, STRONG FEMORAL PULSE REMAINS, CORE TEMP HYPOTHERMIC, PRISCA HUGGER APPLIED 2135: SECOND UNIT [facility] FINISHED INFUSING 2140: EPINEPHRINE GTT DECREASED TO 15 MCG/MIN FOR BP 115/66, OG PLACED, VERIFIED WITH RETURN OF GASTRIC CONTENTS AND AIR FLUSH AUSCULTATED OVER LUQ TEMP PROBE KIM PLACED WITH IMMEDIATE RETURN OF CLEAR YELLOW URINE 115 ML 2155: CXR FOR TUBE PLACEMENT VERIFICATION, PROPOFOL STARTED INFUSING AT 25 MCG/KG/MIN FOR PT REACHING FOR TUBE, EPINEPHRINE GTT INCREASED TO 20 MCG/MIN 2205: EPINEPHRINE GTT INCREASED TO 30 MCG/MIN FOR PRESSURE OF 63/48 2209: DR YANES ARRIVES FOR CONSULT, BICARB ADMINISTERED AND DOPAMINE GTT STARTED INFUSING AT 10 MCG/KG/MIN VIA IO ACCESS 2211: DR NEDITA PREPPING FOR CENTRAL LINE PLACEMENT, HEART RATE LOW 40S, PROPOFOL DC'D, DOPAMINE GTT INCREASED TO 25 MCG/KG/MIN 223: PULSE NO LONGER PRESENT, COMPRESSIONS RESUMED, CODE BLUE RESUMED 223: BICARB 1 AMP ADMINISTERED, EPINEPHRINE 1 MG IO ADMINISTERED 223: PULSE CHECK, NOT PRESENT, RESUME COMPRESSIONS 223: PRBCS STARTED TRANSFUSING @ WIDE OPEN, EPINEPHRINE 1 MG ADMINISTERED IO, NO PULSE AT CHECK 2241: EPINEPHRINE 1 MG ADMINISTERED IO 2244: FAINT FEMORAL PULSE PRESENT, DR YANES SPOKE WITH PT SPOUSE, SHE STATED NOT TO RESUME COMPRESSIONS IF ANOTHER EPISODE 2246: HEART RATE DECREASED TO 20S, VENT WITH LOW TIDAL VOLUMES 2249: PT PULSELESS, ASYSTOLE NOTED.
[2020-09-02 02:20] LABS: pH Blood Arterial 6.98 (7.35-7.45)
== END 2020-09-01 22:49 | DRG 270 ==
LOC: ER 14:10 → MEDS 18:27 → ICUW 18:27 → ICUE 18:27 → MEDS 20:59 → PCU 08-28 18:02 → ICUW 08-28 19:26 → MEDS 09-01 15:45 → ICUE 09-01 20:50
PROVIDERS: Emergency Medicine; Internal Medicine; Nurse Practitioner Acute Care; Physician Assistant; Radiology Diagnostic Radiology; ADMIT Internal Medicine
PROC: B41D1ZZ Fluoroscopy of Aorta and Bilateral Lower Extremity Arteries using Low Osmolar Contrast (ICD-10-PCS; principal; 2020-08-28)
PROC: 047L3ZZ Dilation of Left Femoral Artery, Percutaneous Approach (ICD-10-PCS; 2020-08-28)
PROC: 047N3ZZ Dilation of Left Popliteal Artery, Percutaneous Approach (ICD-10-PCS; 2020-08-28)
PROC: 047S3Z1 Dilation of Left Posterior Tibial Artery using Drug-Coated Balloon, Percutaneous Approach (ICD-10-PCS; 2020-08-28)
PROC: 04CL3ZZ Extirpation of Matter from Left Femoral Artery, Percutaneous Approach (ICD-10-PCS; 2020-08-28)
PROC: 04CN3ZZ Extirpation of Matter from Left Popliteal Artery, Percutaneous Approach (ICD-10-PCS; 2020-08-28)
PROC: 04CS3ZZ Extirpation of Matter from Left Posterior Tibial Artery, Percutaneous Approach (ICD-10-PCS; 2020-08-28)
PROC: 047N34Z Dilation of Left Popliteal Artery with Drug-eluting Intraluminal Device, Percutaneous Approach (ICD-10-PCS; 2020-08-29)
PROC: B41G1ZZ Fluoroscopy of Left Lower Extremity Arteries using Low Osmolar Contrast (ICD-10-PCS; 2020-08-29)
PROC: 049 Lower Arteries, Drainage (ICD-10-PCS; 2020-08-29)
PROC: 5A12012 Performance of Cardiac Output, Single, Manual (ICD-10-PCS; 2020-09-01)
PROC: 0BH18EZ Insertion of Endotracheal Airway into Trachea, Via Natural or Artificial Opening Endoscopic (ICD-10-PCS; 2020-09-01)
PROC: 5A1935Z Respiratory Ventilation, Less than 24 Consecutive Hours (ICD-10-PCS; 2020-09-01)
DX: E11.52 Type 2 diabetes mellitus with diabetic peripheral angiopathy with gangrene (principal); J96.90 Respiratory failure, unspecified, unspecified whether with hypoxia or hypercapnia; L03.116 Cellulitis of left lower limb; E87.2 Acidosis; Z51.5 Encounter for palliative care; I25.2 Old myocardial infarction; I25.10 Atherosclerotic heart disease of native coronary artery without angina pectoris; I35.0 Nonrheumatic aortic (valve) stenosis; E11.22 Type 2 diabetes mellitus with diabetic chronic kidney disease; Z98.52 Vasectomy status; Z89.511 Acquired absence of right leg below knee; Z87.891 Personal history of nicotine dependence; E11.42 Type 2 diabetes mellitus with diabetic polyneuropathy; Z95.1 Presence of aortocoronary bypass graft; Z79.82 Long term (current) use of aspirin; H91.91 Unspecified hearing loss, right ear; R57.8 Other shock; I46.9 Cardiac arrest, cause unspecified; N18.9 Chronic kidney disease, unspecified
CPT/HCPCS: 0241U; 31500; 36200; 36415; 36430; 36600; 37186; 37211; 37214; 37225; 37226; 37229; 71045; 73630; 75625; 75710; 75716; 75774; 76937; 80048; 80053; 80069; 81001; 82310; 82803; 82947; 83036; 83735; 84484; 85014; 85018; 85025; 85027; 85049; 85384; 85610; 85730; 86850; 86900; 86901; 86923; 92950; 93005; 93010; 93922; 94002; 96365; 96367; 99152; 99153; 99284-25; A9270; C1714; C1725; C1757; C1760; C1769; C1874; C1887; C1894; C8929; J0171; J0360; J0461; J0696; J1265; J1630; J1644; J2250; J2270; J2370; J2405; J2543; J2704; J2997; J3010; J3370; J7030; J7040; J7050; J7070; P9016; P9035; P9059; Q9957; Q9967